=== PATIENT | female | born 1955 | race Caucasian/White ===

== ENCOUNTER → 2018-06-03 12:03 | Outpatient (CLI) | payer OTHER, SELFPAY ==
--- NOTE | 2018-06-03 | DI.MG.S_ITS ---
BILATERAL DIGITAL SCREENING MAMMOGRAM 3D/2D WITH CAD: 06/03/2018 CLINICAL: Routine screening. Family history of breast cancer. Comparison is made to exams dated: 05/04/2017 mammogram and 04/29/2016 mammogram - [facility]. The tissue of both breasts is heterogeneously dense. This may lower the sensitivity of mammography. Current study was also evaluated with a Computer Aided Detection (CAD) system. No significant masses, calcifications, or other findings are seen in either breast. There has been no significant interval change. IMPRESSION: NEGATIVE There is no mammographic evidence of malignancy. A 1 year screening mammogram is recommended. This exam was interpreted at Station ID: [id number]. NOTE: For mammograms, a report in lay terms will be sent to the patient. Approximately 15% of breast malignancies will not be visualized mammographically. In the management of a palpable breast mass, a negative mammogram must not discourage biopsy of a clinically suspicious lesion. Electronically Signed By: Harjinder lisa/brandie:06/03/2018 19:38:36 letter sent: Normal Exam ACR BI-RADS Category 1: Negative [id number]
== END ==
PROVIDERS: PCP Physician Assistant; Visit Provider Physician Assistant
DX: Z12.31 Encounter for screening mammogram for malignant neoplasm of breast (principal); Z80.3 Family history of malignant neoplasm of breast
CPT/HCPCS: 77063; 77067

== ENCOUNTER 2023-07-20 14:00 | Outpatient (RCR) | payer MEDICARE, OTHER, SELFPAY ==
--- NOTE | 2023-05-04 18:13 | PT.OIE ---
Current Diagnoses Pain in right hip (05/04/23) Other specified disorders of muscle (05/04/23) Visit Care Team Role Provider Type Corrie Garcia DO Attending Provider Non-Staff Family Provider Primary Care Provider Referring Provider Specialty: Internal Medicine Address: [address] [place] [address], [id number] Email: Physical Therapy Initial Evaluation PT-OP-A Visit Information Start: 04/17/23 20:10 Freq: Status: Active Protocol: Document 05/04/23 13:21 LRN (Rec: 05/04/23 18:05 LRN [id number]) Out-Patient Physical Therapy Visit Information Visit Information Visit Type Initial Evaluation Visit Start Time 13:21 Visit Stop Time 14:11 Total Visit Minutes 50 Visit Number 1 Evaluation Information Evaluation Date 05/04/23 Precautions Precautions History of lumbar surgery due to herniated disc, lobectomy, hyste. PT-OP-B Current Condition Start: 04/17/23 20:10 Freq: Status: Active Protocol: Document 05/04/23 13:21 LRN (Rec: 05/04/23 18:05 LRN [id number]) Current Condition History of Current Condition Onset Date Past 2 yrs urainry leakage. R Hip pain sncdecember. Current Complaints R hip pain primary concern, and urinary incontinence. History of Current Condition R hip pain is primary concern. 1995 had total hyste and has felt since then she has to frequently urinate. R hip pain history: Chronic R hip pain off/on, in early December of 2022 she wasn't having any hip pain, but after hiking she was going downhill, stepping into an indent with R leg, causing her to slide, jammed the R hip into the socket. She continued to hike and was able to hike until a month ago because the hills got challenging and uncomfortable. She has more pain going uphill than downhill. Prior hx of R hip pain was that she was usually stiff on both sides. Now she can't lie on either side, but the right side is worse than the left. Her pain is located below the greater trochanter. Urinary incontinence history: Urinates frequently for a lot of yrs but in the last couple of years after she urinates, she feels the need to urinate immediately afterwards on standing. She doesn't know if she has more to urinate afterwards or whether she just feels she has to urinate. 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 She has had urinary leakage a couple of times when she couldn't make it to the bathroom. Currently she doesn't wear protection. Prior Treatments and Tests No recent x-rays. X-rays on both hips 10 yrs ago. Treatment Goals Patient/Caregiver Goals R hip goals: be able to sleep, walk, and go walk uphill without pain. PF goals: be able to have supreme contol of bladder, by not feeling like she has to urinate right after urinating. Pt agrees to education in breath control with coughing, sneezing and lifting and strengthening ex's. Personal Factors Other Personal Factors That May Effect Previous lower lumbar surgery Therapy/Recovery for herniated disc causing L sided pain. PT-OP-C Subjective Start: 04/17/23 20:10 Freq: Status: Active Protocol: Document 05/04/23 13:21 LRN (Rec: 05/04/23 18:05 LRN [id number]) OP-PT Subjective Patient Comments Patient Comments Previously had surgery of lumbar spine for herniated disc. Patient Questionnaires Lower Extremity Functional Scale LEFS Score 55 LEFS Impairment 1 to 19% Impaired (Score 63-79 ) Pelvic Pain and Urgency/Frequency Patient Symptom Scale Pelvic Pain Score 6 OP-PT Pain Assessment Pain Assessment Grid Paper Pain Assessment Grid Completed Yes Location R hip Pain Location Details R hip below greater trochanter Intensity 4 Scale Used Numeric (0 - 10) Description Aching Frequency Constant Pain Aggravating Factors Position,Activity,Sitting, Walking Other Pain Aggravating Factors Walking and lying Pain Alleviating Factors Inactivity Other Pain Alleviating Factors IBP Comments Pain Comments Not getting exercise she used to get. PT-OP-G Mobility & Gait Start: 04/17/23 20:11 Freq: Status: Active Protocol: Document 05/04/23 13:21 LRN (Rec: 05/04/23 18:05 LRN [id number]) Stair Climbing Evaluation Evaluation Level of Assist On Stairs Independent Devices Stair Climbing Assistive Devices Right Railing Technique/Endurance Stair Climbing Direction Ascend Stair Climbing Technique Step to Step Number of Steps Climbed 20 Comments Stair Climbing Comments Pain with going up stairs. PT-OP-H Neuro Start: 04/17/23 20:11 Freq: Status: Active Protocol: Document 05/04/23 13:21 LRN (Rec: 05/04/23 18:05 LRN [id number]) Sensation Evaluation Gross Sensation Gross Sensation WNL PT-OP-J Posture/Palpation/Skin Start: 04/17/23 20:10 Freq: Status: Active Protocol: Document 05/04/23 13:21 LRN (Rec: 05/04/23 18:05 LRN [id number]) Posture Evaluation Position Standing Head/C-Spine Posture Forward Head T-Spine Posture Increased Kyphosis L-Spine Posture Shifted Left Shoulder Posture (R) Elevated Scapula Posture (R) Elevated Arm Posture (L) Internally Rotated,(R) Internally Rotated Weight Distribution Balanced Knee Posture (R) Genu Valgus Ankle/Foot Posture (L) Calcaneal Eversion Comments Posture Comments Valgus knees: 7 deg's right, 2 deg's left. Decreased gastrocnemius ms mass on R, valgus L ankle > R. Pt reports she tends to stand on R LE out of habit. RUptured disc with pain on L side. Palpation Assessment Location Trunk Palpation Location Between lower ribs and Iliac Crest Palpation Details Decreased space on R between ribs/pelvis. R hip Palpation Location Inferior to R greater trochanter, R sacral border Palpation Findings Soft Tissue Tightness, Tenderness PT-OP-K Range of Motion Start: 04/17/23 20:10 Freq: Status: Active Protocol: Document 05/04/23 13:21 LRN (Rec: 05/04/23 18:05 LRN [id number]) Lumbar Spine Range of Motion Lumbar Spine Active Degrees Testing Position Standing Flexion 72 Extension 5 Rotation Left 10 Rotation Right 2 Lateral Flexion Left 8 Lateral Flexion Right 3 Comments Trunk AROM: Flexion is 72 deg ?s with 62 deg?s hip flexion, Trunk extension is 5 deg?s with 5 deg?s hip extension. Hip Goniometric Range of Motion Hip Right Passive Testing Position Supine Straight Leg Raise 75 Internal Rotation 25 External Rotation 50 Left Passive Testing Position Supine Straight Leg Raise 75 Internal Rotation 15 External Rotation 60 PT-OP-M Strength Start: 04/17/23 20:10 Freq: Status: Active Protocol: Document 05/04/23 13:21 LRN (Rec: 05/04/23 18:05 LRN [id number]) Hip Strength Hip Manual Muscle Testing Right Flexion (L2) 3 Fair Abduction 2+ Poor+ Adduction 2- Poor- External Rotation 5 Normal Internal Rotation 3 Fair Left Flexion (L2) 3 Fair Abduction 2 Poor Adduction 2 Poor External Rotation 3+ Fair+ Internal Rotation 3 Fair PT-OP-Q Treatments Start: 04/17/23 20:10 Freq: Status: Active Protocol: Document 05/04/23 13:21 LRN (Rec: 05/04/23 18:05 [facility] [id number]) Therapeutic Exercises Sitting Exercises Hip ER stretch Sitting Exercise Name I/S & showed Piriformis stretch w/R ankle over knee, pushing knee down. Side right Comments I/S & reviewed HEP handout issued Piriformis stretch Sitting Exercise Name I/S & showed Piriformis stretch w/R ankle over knee, leaning L shdr to knee. Side right Comments I/S & reviewed HEP handout issued Self-Care/Home Management Treatment Education Patient Education Home Exercise Program Other Education Discussed results of evaluation, goals, and plan of care (POC). Pt agreeable to goals and POC. Discussed & educated pt in proper squatting and lifting, sit to stand, and moving in bed using breathwork and PF contraction for proper pistoning effect. Issued, discussed, & reviewed Bladder Diary for pt to complete over the next 7 days. Explained how to fill out diary and counting of urination times. Activities Self-Care/Home Management Activities Education: Reviewed handout for Kegel exercises for Quick Flicks, Long Holds & Aggrevators with I/S to do Kegels while she focus' on her R hip pain rehabilitation. PT-OP-T Assessment and Plan Start: 04/17/23 20:10 Freq: Status: Active Protocol: Document 05/04/23 13:21 LRN (Rec: 05/04/23 18:05 [facility] [id number]) Physical Therapy Assessment Rehab Potential Rehabilitation Potential Good Evaluation Complexity Number of Personal Factors/Comorbidities 1-2 Number of Body Systems Impaired 4 or More Clinical Presentation at Evaluation Evolving Impairments Impairments Activity Tolerance,Functional Activities,Pain,Posture,ROM, Soft Tissue Mobility,Strength, Transfers Goals Five Impairment Stress urinary incontinence Impairment Urinary leakage with cough, sneeze or bending over to car pick up driver a pot. Short Term Goal (STG) Pt will be educated in breath control with coughing, sneezing and lifting and strengthening ex's. STG Duration 06/21/23 Retirement Goal (LTG) Improve PF strength with pt able to cough, sneeze or bend over to car pick up driver an object of moderate weight wihtout urinary leakage. LTG Duration 08/02/23 Four Impairment Lacks appropriate self care HEP for urinary incontinence care. Short Term Goal (STG) Education in proper methods for transfer with coordination of breathing, PF contractions , and eduation in proper vulvar/genital care. STG Duration 06/21/23 Retirement Goal (LTG) Pt will be educated in Pt will be independent with a self care HEP of PF/core strengthening exercises. LTG Duration 08/02/23 Three Impairment Urge urinary incontinence Impairment Urinates frequently, after she urinates, she feels the need to urinate immediately afterwards on standing and sometimes when trying to make it to the bathroom. Short Term Goal (STG) Pt will be educated in urinary delay technique with ability to not leak urine when walking to the bathroom. STG Duration 06/21/23 Brazer Resistance Goal (LTG) Pt will improve PF strength and will no longer feel like she has to urinate right after urinating. LTG Duration 08/02/23 Two Impairment R hip pain with activity and sitting. Impairment Increased R hip pain, 4/10, and discomfort with prolonged sitting and with ascending walking (uphill) and stair ambulation. Short Term Goal (STG) Decrease R hip pain with prolonged sitting. STG Duration 06/04/23 Brazer Resistance Goal (LTG) Decrease R hip pain with pt able to sleep, walk, and go uphill and ascend stairs with minimal or no pain. LTG Duration 08/02/23 One Impairment Lacks appropriate self care HEP for R hip pain management Short Term Goal (STG) Pt will be educated in proper sitting and standing posture. STG Duration 06/04/23 [place]razer Resistance Goal (LTG) Pt will be independent with a self care HEP of R>L hip ROM and hip/LE strengthening exercises. LTG Duration 08/02/23 Assessment Summary Assessment Pt is a 67 yo female who presents with her primary complaint and concern being R hip pain and secondary complaint of mixed urinary incontinence. The pt would like her rehab to focus on her R hip pain to start and address her mixed urinary incontinence at a later time. Her R hip pain appears to be due to mechanical (anter rotated R innominate and L rotated sacrum) and soft tissue (R posterior hip muscle tightness) dysfunction. The pt will need further assessment of her PF due to time constraints; therefore her PF muscle strength will be tested at her next visit. It is expected that the pt will require extended rehab time of 4-5 months to address her R hip pain, followed by PF rehabilitation. The pt will benefit from skilled physical therapy to achieve the above stated goals. Physical Therapy Plan Frequency and Duration Frequency of Treatment 2x/Week Plan of Care Start Date 05/04/23 Therapeutic Interventions Therapeutic Interventions Gait Training,Home Exercise Program,Joint Mobilizations, Manual Therapy,Neuromuscular Re-education,Self-Care/Home Management,Soft Tissue Mobilization,Therapeutic Activities,Therapeutic Exercises Modalities Cold Pack/Ice Massage,Electric Stimulation,Hot Packs Next Visit Focus/Plan Next Note Type Treatment Note Next Visit Plan R hip rehabilitation for anter rotated R innominate and L rotated sacrum, and PF rehab for mixed urinary incontinence . Complete external and internal PF assessment f/b JMT to R innominate for anterior rotation and sacral L rotation . PF strengthening as appropriate. Assess: Trunk strength, PF strength Ther Ex: PF/hip strengthening (support Valgus of R knee), Stretches: R hip ER/L hip IR, R Sciatic n. glides, & Trunk R rot/R SB. POC focus: R hip pain resolution, then PF rehabilitation.
--- NOTE | 2023-05-04 18:13 | PT.OPPOC ---
Physical, Occupational & Speech Therapy At [facility] Current Diagnoses Pain in right hip (05/04/23) Other specified disorders of muscle (05/04/23) Visit Care Team Role Provider Type Corrie Garcia DO Attending Provider Non-Staff Family Provider Primary Care Provider Referring Provider Specialty: Internal Medicine Address: [address] [place] [address], [id number] Email: Plan Of Care PT-OP-T Assessment and Plan Start: 04/17/23 20:10 Freq: Status: Active Protocol: Document 05/04/23 13:21 LRN (Rec: 05/04/23 18:05 LRN [id number]) Physical Therapy Assessment Rehab Potential Rehabilitation Potential Good Evaluation Complexity Number of Personal Factors/Comorbidities 1-2 Number of Body Systems Impaired 4 or More Clinical Presentation at Evaluation Evolving Impairments Impairments Activity Tolerance,Functional Activities,Pain,Posture,ROM, Soft Tissue Mobility,Strength, Transfers Goals Five Impairment Stress urinary incontinence Impairment Urinary leakage with cough, sneeze or bending over to picking tech a pot. Short Term Goal (STG) Pt will be educated in breath control with coughing, sneezing and lifting and strengthening ex's. STG Duration 06/21/23 Security Architect Goal (LTG) Improve PF strength with pt able to cough, sneeze or bend over to picking tech an object of moderate weight wihtout urinary leakage. LTG Duration 08/02/23 Four Impairment Lacks appropriate self care HEP for urinary incontinence care. Short Term Goal (STG) Education in proper methods for transfer with coordination of breathing, PF contractions , and eduation in proper vulvar/genital care. STG Duration 06/21/23 Long-Term Goal (LTG) Pt will be educated in Pt will be independent with a self care HEP of PF/core strengthening exercises. LTG Duration 08/02/23 Three Impairment Urge urinary incontinence Impairment Urinates frequently, after she urinates, she feels the need to urinate immediately afterwards on standing and sometimes when trying to make it to the bathroom. Short Term Goal (STG) Pt will be educated in urinary delay technique with ability to not leak urine when walking to the bathroom. STG Duration 06/21/23 Long-Term Goal (LTG) Pt will improve PF strength and will no longer feel like she has to urinate right after urinating. LTG Duration 08/02/23 Two Impairment R hip pain with activity and sitting. Impairment Increased R hip pain, 4/10, and discomfort with prolonged sitting and with ascending walking (uphill) and stair ambulation. Short Term Goal (STG) Decrease R hip pain with prolonged sitting. STG Duration 06/04/23 Long-Term Goal (LTG) Decrease R hip pain with pt able to sleep, walk, and go uphill and ascend stairs with minimal or no pain. LTG Duration 08/02/23 One Impairment Lacks appropriate self care HEP for R hip pain management Short Term Goal (STG) Pt will be educated in proper sitting and standing posture. STG Duration 06/04/23 Security Architect Goal (LTG) Pt will be independent with a self care HEP of R>L hip ROM and hip/LE strengthening exercises. LTG Duration 08/02/23 Assessment Summary Assessment Pt is a 67 yo female who presents with her primary complaint and concern being R hip pain and secondary complaint of mixed urinary incontinence. The pt would like her rehab to focus on her R hip pain to start and address her mixed urinary incontinence at a later time. Her R hip pain appears to be due to mechanical (anter rotated R innominate and L rotated sacrum) and soft tissue (R posterior hip muscle tightness) dysfunction. The pt will need further assessment of her PF due to time constraints; therefore her PF muscle strength will be tested at her next visit. It is expected that the pt will require extended rehab time of 4-5 months to address her R hip pain, followed by PF rehabilitation. The pt will benefit from skilled physical therapy to achieve the above stated goals. Physical Therapy Plan Frequency and Duration Frequency of Treatment 2x/Week Plan of Care Start Date 05/04/23 Therapeutic Interventions Therapeutic Interventions Gait Training,Home Exercise Program,Joint Mobilizations, Manual Therapy,Neuromuscular Re-education,Self-Care/Home Management,Soft Tissue Mobilization,Therapeutic Activities,Therapeutic Exercises Modalities Cold Pack/Ice Massage,Electric Stimulation,Hot Packs Next Visit Focus/Plan Next Note Type Treatment Note Next Visit Plan R hip rehabilitation for anter rotated R innominate and L rotated sacrum, and PF rehab for mixed urinary incontinence . Complete external and internal PF assessment f/b JMT to R innominate for anterior rotation and sacral L rotation . PF strengthening as appropriate. Assess: Trunk strength, PF strength Ther Ex: PF/hip strengthening (support Valgus of R knee), Stretches: R hip ER/L hip IR, R Andrzej crowe, & Trunk R rot/R SB. POC focus: R hip pain resolution, then PF rehabilitation. Plan of Care Dates Plan of Care Start Date 05/04/23 Electronically Signed by: Porsche Gabriel, PT 05/05/23 5698 If you are in agreement with this Plan of Care, please return a signed and dated copy. I have reviewed this Plan of Care and certify that the skilled therapy services above are required to meet the patient?s needs. Physician Signature Date Printed Name and Credentials Clinical Instructor Signature Printed Name and Credentials
--- NOTE | 2023-05-11 17:35 | PT.OTN ---
Current Diagnoses Pain in right hip (05/11/23) Other specified disorders of muscle (05/11/23) Segmental and somatic dysfunction of sacral region (05/11/23) Physical Therapy Treatment Note PT-OP-A Visit Information Start: 04/17/23 20:10 Freq: Status: Active Protocol: Document 05/11/23 08:53 LRN (Rec: 05/11/23 09:36 LRN [id number]) Out-Patient Physical Therapy Visit Information Visit Information Visit Type Treatment Note Visit Start Time 08:53 Visit Stop Time 08:33 Total Visit Minutes 40 Visit Number 2 Evaluation Information Evaluation Date 05/04/23 Precautions Precautions History of lumbar surgery due to herniated disc, lobectomy, hyste. PT-OP-B Current Condition Start: 04/17/23 20:10 Freq: Status: Active Protocol: Document 05/04/23 13:21 LRN (Rec: 05/04/23 18:05 LRN [id number]) Current Condition History of Current Condition Onset Date Past 2 yrs urainry leakage. R Hip pain december. Current Complaints R hip pain primary concern, and urinary incontinence. History of Current Condition R hip pain is primary concern. 1995 had total hyste and has felt since then she has to frequently urinate. R hip pain history: Chronic R hip pain off/on, in early December of 2022 she wasn't having any hip pain, but after hiking she was going downhill, stepping into an indent with R leg, causing her to slide, jammed the R hip into the socket. She continued to hike and was able to hike until a month ago because the hills got challenging and uncomfortable. She has more pain going uphill than downhill. Prior hx of R hip pain was that she was usually stiff on both sides. Now she can't lie on either side, but the right side is worse than the left. Her pain is located below the greater trochanter. Urinary incontinence history: Urinates frequently for a lot of yrs but in the last couple of years after she urinates, she feels the need to urinate immediately afterwards on standing. She doesn't know if she has more to urinate afterwards or whether she just feels she has to urinate. She reports urinary leakage with cough, sneeze or bending over to pecan picker a pot. She has had urinary leakage a couple of times when she couldn't make it to the bathroom. Currently she doesn't wear protection. Prior Treatments and Tests No recent x-rays. X-rays on both hips 10 yrs ago. Treatment Goals Patient/Caregiver Goals R hip goals: be able to sleep, walk, and go walk uphill without pain. PF goals: be able to have supreme contol of bladder, by not feeling like she has to urinate right after urinating. Pt agrees to education in breath control with coughing, sneezing and lifting and strengthening ex's. Personal Factors Other Personal Factors That May Effect Previous lower lumbar surgery Therapy/Recovery for herniated disc causing L sided pain. PT-OP-C Subjective Start: 04/17/23 20:10 Freq: Status: Active Protocol: Document 05/11/23 08:53 LRN (Rec: 05/11/23 09:36 LRN [id number]) OP-PT Subjective Patient Comments Patient Comments States this morning her R hip feels a little better. For the past 2 weekends has had parties to prepare. Wasn't clear with ex's. PT-OP-G Mobility & Gait Start: 04/17/23 20:11 Freq: Status: Active Protocol: Document 05/04/23 13:21 LRN (Rec: 05/04/23 18:05 LRN [id number]) Stair Climbing Evaluation Evaluation Level of Assist On Stairs Independent Devices Stair Climbing Assistive Devices Right Railing Technique/Endurance Stair Climbing Direction Ascend Stair Climbing Technique Step to Step Number of Steps Climbed 20 Comments Stair Climbing Comments Pain with going up stairs. PT-OP-H Neuro Start: 04/17/23 20:11 Freq: Status: Active Protocol: Document 05/04/23 13:21 LRN (Rec: 05/04/23 18:05 LRN [id number]) Sensation Evaluation Gross Sensation Gross Sensation WNL PT-OP-J Posture/Palpation/Skin Start: 04/17/23 20:10 Freq: Status: Active Protocol: Document 05/04/23 13:21 LRN (Rec: 05/04/23 18:05 LRN [id number]) Posture Evaluation Position Standing Head/C-Spine Posture Forward Head T-Spine Posture Increased Kyphosis L-Spine Posture Shifted Left Shoulder Posture (R) Elevated Scapula Posture (R) Elevated Arm Posture (L) Internally Rotated,(R) Internally Rotated Weight Distribution Balanced Knee Posture (R) Genu Valgus Ankle/Foot Posture (L) Calcaneal Eversion Comments Posture Comments Valgus knees: 7 deg's right, 2 deg's left. Decreased gastrocnemius ms mass on R, valgus L ankle > R. Pt reports she tends to stand on R LE out of habit. RUptured disc with pain on L side. Palpation Assessment Location Trunk Palpation Location Between lower ribs and Iliac Crest Palpation Details Decreased space on R between ribs/pelvis. R hip Palpation Location Inferior to R greater trochanter, R sacral border Palpation Findings Soft Tissue Tightness, Tenderness PT-OP-K Range of Motion Start: 04/17/23 20:10 Freq: Status: Active Protocol: Document 05/11/23 08:53 LRN (Rec: 05/11/23 09:36 LRN [id number]) Hip Goniometric Range of Motion Hip Right Passive Testing Position Supine Straight Leg Raise 75 Internal Rotation 25 External Rotation 50 Left Passive Testing Position Supine Straight Leg Raise 75 Internal Rotation 30 External Rotation 60 PT-OP-M Strength Start: 04/17/23 20:10 Freq: Status: Active Protocol: Document 05/04/23 13:21 LRN (Rec: 05/04/23 18:05 LRN [id number]) Hip Strength Hip Manual Muscle Testing Right Flexion (L2) 3 Fair Abduction 2+ Poor+ Adduction 2- Poor- External Rotation 5 Normal Internal Rotation 3 Fair Left Flexion (L2) 3 Fair Abduction 2 Poor Adduction 2 Poor External Rotation 3+ Fair+ Internal Rotation 3 Fair PT-OP-Q Treatments Start: 04/17/23 20:10 Freq: Status: Active Protocol: Document 05/11/23 08:53 LRN (Rec: 05/11/23 09:36 LRN [id number]) Therapeutic Exercises Supine Exercises Fig 4 stretch Supine Exercise Name Fig 4 stretch Side right Reps/Minutes 60 SH x 2 Comments Extra time for positioning and determining max tolerated stretch. Lateral Hip stretch Supine Exercise Name Lateral Hip stretch Side right Reps/Minutes 60 SH x 1 Comments Extra time for positioning and determining max tolerated stretch. Piriformis stretch Supine Exercise Name Piriformis stretch Side right Reps/Minutes 60 SH x 2 Comments Extra time for positioning and determining max tolerated stretch. Sitting Exercises Hip ER stretch Sitting Exercise Name I/S & showed Piriformis stretch w/R ankle over knee, pushing knee down. Side right Reps/Minutes 60 SH x 1 Comments Extra time for positioning training for stretch Piriformis stretch Sitting Exercise Name I/S & showed Piriformis stretch w/R ankle over knee, leaning L shdr to knee. Side right Reps/Minutes 60 SH x 1 Comments Extra time for positioning training for stretch Manual Therapy Treatment Manual Techniques Sacral Balancing Type 6 pt Sacral balancing Body Location Sacrum Body Position Prone Reps/Duration 13 Comments R restricted with Infer glide, PA of RACHEL and Sacral sulcus. Self-Care/Home Management Treatment Education Patient Education Home Exercise Program Activities Self-Care/Home Management Activities Issued & reviewed HEP: R Piriformis (sup & sit) & L lateral hip stretch. PT-OP-T Assessment and Plan Start: 04/17/23 20:10 Freq: Status: Active Protocol: Document 05/11/23 08:53 LRN (Rec: 05/11/23 09:36 LRN [id number]) Physical Therapy Assessment Goals Five Impairment Stress urinary incontinence Impairment Urinary leakage with cough, sneeze or bending over to pecan picker a pot. Short Term Goal (STG) Pt will be educated in breath control with coughing, sneezing and lifting and strengthening ex's. STG Duration 06/21/23 Shelter Goal (LTG) Improve PF strength with pt able to cough, sneeze or bend over to pecan picker an object of moderate weight wihtout urinary leakage. LTG Duration 08/02/23 Four Impairment Lacks appropriate self care HEP for urinary incontinence care. Short Term Goal (STG) Education in proper methods for transfer with coordination of breathing, PF contractions , and eduation in proper vulvar/genital care. STG Duration 06/21/23 User Interface Artist Goal (LTG) Pt will be educated in Pt will be independent with a self care HEP of PF/core strengthening exercises. LTG Duration 08/02/23 Three Impairment Urge urinary incontinence Impairment Urinates frequently, after she urinates, she feels the need to urinate immediately afterwards on standing and sometimes when trying to make it to the bathroom. Short Term Goal (STG) Pt will be educated in urinary delay technique with ability to not leak urine when walking to the bathroom. STG Duration 06/21/23 User Interface Artist Goal (LTG) Pt will improve PF strength and will no longer feel like she has to urinate right after urinating. LTG Duration 08/02/23 Two Impairment R hip pain with activity and sitting. Impairment Increased R hip pain, 4/10, and discomfort with prolonged sitting and with ascending walking (uphill) and stair ambulation. Short Term Goal (STG) Decrease R hip pain with prolonged sitting. STG Duration 06/04/23 User Interface Artist Goal (LTG) Decrease R hip pain with pt able to sleep, walk, and go uphill and ascend stairs with minimal or no pain. LTG Duration 08/02/23 One Impairment Lacks appropriate self care HEP for R hip pain management Short Term Goal (STG) Pt will be educated in proper sitting and standing posture. STG Duration 06/04/23 Shelter Goal (LTG) Pt will be independent with a self care HEP of R>L hip ROM and hip/LE strengthening exercises. 05/11/23: HEP: Hip ER/IR stretch. LTG Duration 08/02/23 progressed 05/11/23 Assessment Summary Assessment Pt R hip ER/IR mobility decreased and leg length appears equal in supine today. Pt has fair tolerance to R hip ER stretch, good tolerance to R hip IR stretch. Fairly easy mob of sacrum. Pt sacrum is in L rotation w/ tight R hip muscles. Physical Therapy Plan Frequency and Duration Frequency of Treatment 2x/Week Duration of treatment (weeks) 12 Plan of Care Start Date 05/04/23 Plan of Care End Date 08/02/23 Therapeutic Interventions Therapeutic Interventions Gait Training,Home Exercise Program,Joint Mobilizations, Manual Therapy,Neuromuscular Re-education,Self-Care/Home Management,Soft Tissue Mobilization,Therapeutic Activities,Therapeutic Exercises Modalities Cold Pack/Ice Massage,Electric Stimulation,Hot Packs Next Visit Focus/Plan Next Note Type Treatment Note Next Visit Plan R hip rehabilitation for pain. PF rehab for mixed urinary incontinence. Complete external and internal PF assessment f/b JMT as needed to R innominate for anterior rotation and sacral L rotation. Check for response to sacral balancing. Recheck hip mobility. PF strengthening as appropriate. Assess: Trunk strength, PF strength Ther Ex: PF/hip strengthening (support Valgus of R knee), Stretches: R hip ER/L hip IR, R Sciatic n. glides, & Trunk R rot/R SB. POC focus: R hip pain resolution, then PF rehabilitation.
--- NOTE | 2023-05-19 16:28 | PT.OTN ---
Current Diagnoses Pain in right hip (05/19/23) Other specified disorders of muscle (05/19/23) Segmental and somatic dysfunction of sacral region (05/19/23) Physical Therapy Treatment Note PT-OP-A Visit Information Start: 04/17/23 20:10 Freq: Status: Active Protocol: Document 05/19/23 15:03 LRN (Rec: 05/19/23 16:28 LRN [id number]) Out-Patient Physical Therapy Visit Information Visit Information Visit Type Treatment Note Visit Start Time 15:03 Visit Stop Time 15:46 Total Visit Minutes 45 Visit Number 3 Evaluation Information Evaluation Date 05/04/23 Precautions Precautions History of lumbar surgery due to herniated disc, lobectomy, hyste. PT-OP-B Current Condition Start: 04/17/23 20:10 Freq: Status: Active Protocol: Document 05/04/23 13:21 LRN (Rec: 05/04/23 18:05 LRN [id number]) Current Condition History of Current Condition Onset Date Past 2 yrs urainry leakage. R Hip pain december. Current Complaints R hip pain primary concern, and urinary incontinence. History of Current Condition R hip pain is primary concern. 1995 had total hyste and has felt since then she has to frequently urinate. R hip pain history: Chronic R hip pain off/on, in early December of 2022 she wasn't having any hip pain, but after hiking she was going downhill, stepping into an indent with R leg, causing her to slide, jammed the R hip into the socket. She continued to hike and was able to hike until a month ago because the hills got challenging and uncomfortable. She has more pain going uphill than downhill. Prior hx of R hip pain was that she was usually stiff on both sides. Now she can't lie on either side, but the right side is worse than the left. Her pain is located below the greater trochanter. Urinary incontinence history: Urinates frequently for a lot of yrs but in the last couple of years after she urinates, she feels the need to urinate immediately afterwards on standing. She doesn't know if she has more to urinate afterwards or whether she just feels she has to urinate. She reports urinary leakage with cough, sneeze or bending over to black pickler a pot. She has had urinary leakage a couple of times when she couldn't make it to the bathroom. Currently she doesn't wear protection. Prior Treatments and Tests No recent x-rays. X-rays on both hips 10 yrs ago. Treatment Goals Patient/Caregiver Goals R hip goals: be able to sleep, walk, and go walk uphill without pain. PF goals: be able to have supreme contol of bladder, by not feeling like she has to urinate right after urinating. Pt agrees to education in breath control with coughing, sneezing and lifting and strengthening ex's. Personal Factors Other Personal Factors That May Effect Previous lower lumbar surgery Therapy/Recovery for herniated disc causing L sided pain. PT-OP-C Subjective Start: 04/17/23 20:10 Freq: Status: Active Protocol: Document 05/19/23 15:03 LRN (Rec: 05/19/23 16:28 LRN [id number]) OP-PT Subjective Patient Comments Patient Comments Overall hip isn't better. Was able to lay on the R side a little today. [place] good after last session but now has pain in the R lateral lower leg, then 2 days after last session the R knee seized up and couldn't bend it comfortably and was a little stiff and weak. Ocasionally (once every few days) feels like it will give out. Spent 2 days driving to [facility]. Took longer walks than normal last week. PT-OP-G Mobility & Gait Start: 04/17/23 20:11 Freq: Status: Active Protocol: Document 05/04/23 13:21 LRN (Rec: 05/04/23 18:05 LRN [id number]) Stair Climbing Evaluation Evaluation Level of Assist On Stairs Independent Devices Stair Climbing Assistive Devices Right Railing Technique/Endurance Stair Climbing Direction Ascend Stair Climbing Technique Step to Step Number of Steps Climbed 20 Comments Stair Climbing Comments Pain with going up stairs. PT-OP-H Neuro Start: 04/17/23 20:11 Freq: Status: Active Protocol: Document 05/04/23 13:21 LRN (Rec: 05/04/23 18:05 LRN [id number]) Sensation Evaluation Gross Sensation Gross Sensation WNL PT-OP-I Pelvic Floor Start: 04/17/23 20:10 Freq: Status: Active Protocol: Document 05/19/23 15:03 LRN (Rec: 05/19/23 16:28 LRN [id number]) Pelvic Floor Assessment Urine Urinary Symptoms Dribbling After Urination, Incomplete Emptying Leakage Cause Cough,Sneeze Nocturia 0 Pads Used In 24 Hours 0 Bowel Bowel Symptoms Constipation,Uncontrolled Flatulence Bowel Movement Frequency 3-6 [place] Stool Chart Comments Stool types range 4-6 Pelvic Clock Pelvic Clock Other Redness and dry in PF Pt performs PF contraction with substitue ms, primarily gluteal and abdominal muscles. . Prolapse Cystocele Grade 2 Urethrocele Grade 2 Prolapse Comments Can feel end of vagina (pt w/o uterus) with full index finger insertion (7cm). Perineal Descent Resting Absent Bearing Present Contraction Ability Voluntary Relaxation Moderate Manual Muscle Testing Left 2 Manual Muscle Testing Right 2 Manual Muscle Testing Anterior 0 Manual Muscle Testing Posterior 3 Muscle Endurance (Seconds) 3 Number of Quick Contractions In 10 10 Seconds Comments Pelvic Floor Comments Weak Superficial ms contraction, not easily identifiable. PT-OP-J Posture/Palpation/Skin Start: 04/17/23 20:10 Freq: Status: Active Protocol: Document 05/04/23 13:21 LRN (Rec: 05/04/23 18:05 LRN [id number]) Posture Evaluation Position Standing Head/C-Spine Posture Forward Head T-Spine Posture Increased Kyphosis L-Spine Posture Shifted Left Shoulder Posture (R) Elevated Scapula Posture (R) Elevated Arm Posture (L) Internally Rotated,(R) Internally Rotated Weight Distribution Balanced Knee Posture (R) Genu Valgus Ankle/Foot Posture (L) Calcaneal Eversion Comments Posture Comments Valgus knees: 7 deg's right, 2 deg's left. Decreased gastrocnemius ms mass on R, valgus L ankle > R. Pt reports she tends to stand on R LE out of habit. RUptured disc with pain on L side. Palpation Assessment Location Trunk Palpation Location Between lower ribs and Iliac Crest Palpation Details Decreased space on R between ribs/pelvis. R hip Palpation Location Inferior to R greater trochanter, R sacral border Palpation Findings Soft Tissue Tightness, Tenderness PT-OP-K Range of Motion Start: 04/17/23 20:10 Freq: Status: Active Protocol: Document 05/11/23 08:53 LRN (Rec: 05/11/23 09:36 LRN [id number]) Hip Goniometric Range of Motion Hip Right Passive Testing Position Supine Straight Leg Raise 75 Internal Rotation 25 External Rotation 50 Left Passive Testing Position Supine Straight Leg Raise 75 Internal Rotation 30 External Rotation 60 PT-OP-M Strength Start: 04/17/23 20:10 Freq: Status: Active Protocol: Document 05/04/23 13:21 LRN (Rec: 05/04/23 18:05 LRN [id number]) Hip Strength Hip Manual Muscle Testing Right Flexion (L2) 3 Fair Abduction 2+ Poor+ Adduction 2- Poor- External Rotation 5 Normal Internal Rotation 3 Fair Left Flexion (L2) 3 Fair Abduction 2 Poor Adduction 2 Poor External Rotation 3+ Fair+ Internal Rotation 3 Fair PT-OP-Q Treatments Start: 04/17/23 20:10 Freq: Status: Active Protocol: Document 05/19/23 15:03 LRN (Rec: 05/19/23 16:28 LRN [id number]) Therapeutic Exercises Supine Exercises PF Long Hold Contractions Supine Exercise Name PF Long Hold Contractions Reps/Minutes 10 SH x 2 Comments Pt fatigued at 3 secs and 8 secs PF Quick Contractions Supine Exercise Name Quick Contraction Reps/Minutes 10 x 2 with rest period between sets Comments 10x in 10 secs x 2 Fig 4 stretch Supine Exercise Name Fig 4 stretch Side right Reps/Minutes 60 SH x 1 Comments Cuing to not stretch into pain Piriformis stretch Supine Exercise Name Piriformis stretch Side right Reps/Minutes 60 SH x 2 Comments Extra time for positioning and determining max tolerated stretch Other Exercises Transfer training coordinating breath/PF >< Other Exercise Name Sup<>Sit<>Stand coordinating breath/PF contraction Reps/Minutes 5' Comments Education and v cuing for coordinated transfer. Manual Therapy Treatment Joint Mobilizations L innominate Joint L SIJ Direction PA of L innominate Grade I Body Position Supine Reps/Duration 3' Comments Extra time taken to assess pelvic positioning. R innoimnate inflare and ASIS deep in supine. Nerve Glides Peroneal Nerve R Peroneal glide Details R hip IR, AD, pt moving ankle into IV. Body Position Supine Reps/Duration 10 ankle IV pumps Comments Extra time taken to find max tolerated position for stretch Self-Care/Home Management Treatment Education Patient Education Home Exercise Program Other Education Discussed pt's ongoing symptoms of pain down the RLE and recommended pt use heat to sacral region if pain in hip/ leg. Reviewed PF assessment and educated pt in use of breathwork with movement ( transfers) and with activities and adding PF contractions during transfer for 10 sec contraction. Educated pt in abdominal pressure management in abdomen with transfers and activities . Activities Self-Care/Home Management Activities Issued & reviewed and discussed at length HEP: Kegels Quick Flicks and Long holds. PT-OP-T Assessment and Plan Start: 04/17/23 20:10 Freq: Status: Active Protocol: Document 05/19/23 15:03 LRN (Rec: 05/19/23 16:28 LRN [id number]) Physical Therapy Assessment Goals Five Impairment Stress urinary incontinence Impairment Urinary leakage with cough, sneeze or bending over to black pickler a pot. Short Term Goal (STG) Pt will be educated in breath control with coughing, sneezing and lifting and strengthening ex's. STG Duration 06/21/23 Environmental Conservation Officer Goal (LTG) Improve PF strength with pt able to cough, sneeze or bend over to black pickler an object of moderate weight wihtout urinary leakage. LTG Duration 08/02/23 Four Impairment Lacks appropriate self care HEP for urinary incontinence care. Short Term Goal (STG) Education in proper methods for transfer with coordination of breathing, PF contractions , and education in proper vulvar/genital care. 05/19/23: Pt educated in proper methods for transfers with coordination of breathing, PF contractions. STG Duration 06/21/23 progressing 05/19/23 (need ed in vulvar/genital care) Nursing Home Goal (LTG) Pt will be educated in Pt will be independent with a self care HEP of PF/core strengthening exercises. 05/19/23: HEP: Kegels Quick and Long Hold contractions. LTG Duration 08/02/23 progressing 05/19/23 Three Impairment Urge urinary incontinence Impairment Urinates frequently, after she urinates, she feels the need to urinate immediately afterwards on standing and sometimes when trying to make it to the bathroom. Short Term Goal (STG) Pt will be educated in urinary delay technique with ability to not leak urine when walking to the bathroom. STG Duration 06/21/23 Nursing Home Goal (LTG) Pt will improve PF strength and will no longer feel like she has to urinate right after urinating. LTG Duration 08/02/23 Two Impairment R hip pain with activity and sitting. Impairment Increased R hip pain, 4/10, and discomfort with prolonged sitting and with ascending walking (uphill) and stair ambulation. Short Term Goal (STG) Decrease R hip pain with prolonged sitting. STG Duration 06/04/23 Environmental Conservation Officer Goal (LTG) Decrease R hip pain with pt able to sleep, walk, and go uphill and ascend stairs with minimal or no pain. LTG Duration 08/02/23 One Impairment Lacks appropriate self care HEP for R hip pain management Short Term Goal (STG) Pt will be educated in proper sitting and standing posture. STG Duration 06/04/23 Environmental Conservation Officer Goal (LTG) Pt will be independent with a self care HEP of R>L hip ROM and hip/LE strengthening exercises. 05/11/23: HEP: Hip ER/IR stretch. LTG Duration 08/02/23 progressed 05/11/23 Progress Towards Goals Progress Comments Progressed education learning STG #4 and HEP. Assessment Summary Assessment Pt rehab for R hip pain and secondary complaint of mixed urinary incontinence. Pt had some relief from hip pain initiall, but return of pain and onset of LLE pain. PF assessment today shows weakness of PF superficial muscles and weakness with deep long hold contractions. PF is red and dry at vaginal entrance and labia. She has no soft tissue tenderness externally or internally. Pt will work on PF strengthening and will work on isolating PF contractions from substitue muscles on a HEP, and will monitor but focus therapy on her R hip pain per pt request. Physical Therapy Plan Frequency and Duration Frequency of Treatment 2x/Week Duration of treatment (weeks) 12 Plan of Care Start Date 05/04/23 Plan of Care End Date 08/02/23 Next Visit Focus/Plan Next Note Type Treatment Note Next Visit Plan R hip rehabilitation for pain; once resolved change focus to PF rehab for mixed urinary incontinence. JMT as needed to R innominate for inflare/shift posteriorly and check sacral L rotation for correction. Recheck hip mobility. PF strengthening as appropriate. Assess: Trunk strength Ther Ex: PF/hip strengthening (support Valgus of R knee), Stretches: R hip ER/L hip IR, R Sciatic & peroneal n. glides, & Trunk R rot/R SB. POC focus: R hip pain resolution, then PF rehabilitation.
--- NOTE | 2023-05-21 13:32 | PT.OTN ---
Current Diagnoses Pain in right hip (05/21/23) Other specified disorders of muscle (05/21/23) Segmental and somatic dysfunction of sacral region (05/21/23) Physical Therapy Treatment Note PT-OP-A Visit Information Start: 04/17/23 20:10 Freq: Status: Active Protocol: Document 05/21/23 12:34 LRN (Rec: 05/21/23 13:32 LRN [id number]) Out-Patient Physical Therapy Visit Information Visit Information Visit Type Treatment Note Visit Start Time 12:34 Visit Stop Time 13:15 Total Visit Minutes 41 Visit Number 4 Evaluation Information Evaluation Date 05/04/23 Precautions Precautions History of lumbar surgery due to herniated disc, lobectomy, hyste. PT-OP-B Current Condition Start: 04/17/23 20:10 Freq: Status: Active Protocol: Document 05/04/23 13:21 LRN (Rec: 05/04/23 18:05 LRN [id number]) Current Condition History of Current Condition Onset Date Past 2 yrs urainry leakage. R Hip pain december. Current Complaints R hip pain primary concern, and urinary incontinence. History of Current Condition R hip pain is primary concern. 1995 had total hyste and has felt since then she has to frequently urinate. R hip pain history: Chronic R hip pain off/on, in early December of 2022 she wasn't having any hip pain, but after hiking she was going downhill, stepping into an indent with R leg, causing her to slide, jammed the R hip into the socket. She continued to hike and was able to hike until a month ago because the hills got challenging and uncomfortable. She has more pain going uphill than downhill. Prior hx of R hip pain was that she was usually stiff on both sides. Now she can't lie on either side, but the right side is worse than the left. Her pain is located below the greater trochanter. Urinary incontinence history: Urinates frequently for a lot of yrs but in the last couple of years after she urinates, she feels the need to urinate immediately afterwards on standing. She doesn't know if she has more to urinate afterwards or whether she just feels she has to urinate. She reports urinary leakage with cough, sneeze or bending over to flower buncher or picker a pot. She has had urinary leakage a couple of times when she couldn't make it to the bathroom. Currently she doesn't wear protection. Prior Treatments and Tests No recent x-rays. X-rays on both hips 10 yrs ago. Treatment Goals Patient/Caregiver Goals R hip goals: be able to sleep, walk, and go walk uphill without pain. PF goals: be able to have supreme contol of bladder, by not feeling like she has to urinate right after urinating. Pt agrees to education in breath control with coughing, sneezing and lifting and strengthening ex's. Personal Factors Other Personal Factors That May Effect Previous lower lumbar surgery Therapy/Recovery for herniated disc causing L sided pain. PT-OP-C Subjective Start: 04/17/23 20:10 Freq: Status: Active Protocol: Document 05/21/23 12:34 LRN (Rec: 05/21/23 13:32 LRN [id number]) OP-PT Subjective Patient Comments Patient Comments R hip is the same, can't get comfortable. Tried heat at R lower leg last night with no significant difference. R lower leg currently hurts. PT-OP-G Mobility & Gait Start: 04/17/23 20:11 Freq: Status: Active Protocol: Document 05/04/23 13:21 LRN (Rec: 05/04/23 18:05 LRN [id number]) Stair Climbing Evaluation Evaluation Level of Assist On Stairs Independent Devices Stair Climbing Assistive Devices Right Railing Technique/Endurance Stair Climbing Direction Ascend Stair Climbing Technique Step to Step Number of Steps Climbed 20 Comments Stair Climbing Comments Pain with going up stairs. PT-OP-H Neuro Start: 04/17/23 20:11 Freq: Status: Active Protocol: Document 05/04/23 13:21 LRN (Rec: 05/04/23 18:05 LRN [id number]) Sensation Evaluation Gross Sensation Gross Sensation WNL PT-OP-I Pelvic Floor Start: 04/17/23 20:10 Freq: Status: Active Protocol: Document 05/19/23 15:03 LRN (Rec: 05/19/23 16:28 LRN [id number]) Pelvic Floor Assessment Urine Urinary Symptoms Dribbling After Urination, Incomplete Emptying Leakage Cause Cough,Sneeze Nocturia 0 Pads Used In 24 Hours 0 Bowel Bowel Symptoms Constipation,Uncontrolled Flatulence Bowel Movement Frequency 3-6 [place] Stool Chart Comments Stool types range 4-6 Pelvic Clock Pelvic Clock Other Redness and dry in PF Pt performs PF contraction with substitue ms, primarily gluteal and abdominal muscles. . Prolapse Cystocele Grade 2 Urethrocele Grade 2 Prolapse Comments Can feel end of vagina (pt w/o uterus) with full index finger insertion (7cm). Perineal Descent Resting Absent Bearing Present Contraction Ability Voluntary Relaxation Moderate Manual Muscle Testing Left 2 Manual Muscle Testing Right 2 Manual Muscle Testing Anterior 0 Manual Muscle Testing Posterior 3 Muscle Endurance (Seconds) 3 Number of Quick Contractions In 10 10 Seconds Comments Pelvic Floor Comments Weak Superficial ms contraction, not easily identifiable. PT-OP-J Posture/Palpation/Skin Start: 04/17/23 20:10 Freq: Status: Active Protocol: Document 05/04/23 13:21 LRN (Rec: 05/04/23 18:05 LRN [id number]) Posture Evaluation Position Standing Head/C-Spine Posture Forward Head T-Spine Posture Increased Kyphosis L-Spine Posture Shifted Left Shoulder Posture (R) Elevated Scapula Posture (R) Elevated Arm Posture (L) Internally Rotated,(R) Internally Rotated Weight Distribution Balanced Knee Posture (R) Genu Valgus Ankle/Foot Posture (L) Calcaneal Eversion Comments Posture Comments Valgus knees: 7 deg's right, 2 deg's left. Decreased gastrocnemius ms mass on R, valgus L ankle > R. Pt reports she tends to stand on R LE out of habit. RUptured disc with pain on L side. Palpation Assessment Location Trunk Palpation Location Between lower ribs and Iliac Crest Palpation Details Decreased space on R between ribs/pelvis. R hip Palpation Location Inferior to R greater trochanter, R sacral border Palpation Findings Soft Tissue Tightness, Tenderness PT-OP-K Range of Motion Start: 04/17/23 20:10 Freq: Status: Active Protocol: Document 05/21/23 12:34 LRN (Rec: 05/21/23 13:32 LRN [id number]) Hip Goniometric Range of Motion Hip Right Passive Testing Position Supine Internal Rotation 25 External Rotation 50 Left Passive Testing Position Supine Internal Rotation 20 External Rotation 50 PT-OP-M Strength Start: 04/17/23 20:10 Freq: Status: Active Protocol: Document 05/04/23 13:21 LRN (Rec: 05/04/23 18:05 LRN [id number]) Hip Strength Hip Manual Muscle Testing Right Flexion (L2) 3 Fair Abduction 2+ Poor+ Adduction 2- Poor- External Rotation 5 Normal Internal Rotation 3 Fair Left Flexion (L2) 3 Fair Abduction 2 Poor Adduction 2 Poor External Rotation 3+ Fair+ Internal Rotation 3 Fair PT-OP-Q Treatments Start: 04/17/23 20:10 Freq: Status: Active Protocol: Document 05/21/23 12:34 LRN (Rec: 05/21/23 13:32 LRN [id number]) Therapeutic Exercises Supine Exercises Fig 4 stretch Supine Exercise Name Fig 4 stretch Side right Reps/Minutes 60 SH x 1 Comments Cuing to not stretch into pain Lateral Hip stretch Supine Exercise Name Lateral Hip stretch Side right Reps/Minutes 60 SH x 1 Comments Extra time for positioning and determining max tolerated stretch. Piriformis stretch Supine Exercise Name Piriformis stretch Side right Reps/Minutes 60 SH x 2 Comments Extra time for positioning and determining max tolerated stretch Manual Therapy Treatment Manual Techniques Sacral Balancing Type 6 pt Sacral balancing Body Location Sacrum Body Position Prone Reps/Duration 21' Comments Restricted with R sacral sheer , R Infer glide, R PA of: sacral sulcus, RACHEL & ischial tub. PT-OP-T Assessment and Plan Start: 04/17/23 20:10 Freq: Status: Active Protocol: Document 05/21/23 12:34 LRN (Rec: 05/21/23 13:32 [facility] [id number]) Physical Therapy Assessment Goals Five Impairment Stress urinary incontinence Impairment Urinary leakage with cough, sneeze or bending over to flower buncher or picker a pot. Short Term Goal (STG) Pt will be educated in breath control with coughing, sneezing and lifting and strengthening ex's. STG Duration 06/21/23 Mcc Goal (LTG) Improve PF strength with pt able to cough, sneeze or bend over to flower buncher or picker an object of moderate weight wihtout urinary leakage. LTG Duration 08/02/23 Four Impairment Lacks appropriate self care HEP for urinary incontinence care. Short Term Goal (STG) Education in proper methods for transfer with coordination of breathing, PF contractions , and education in proper vulvar/genital care. 05/19/23: Pt educated in proper methods for transfers with coordination of breathing, PF contractions. STG Duration 06/21/23 progressing 05/19/23 (need ed in vulvar/genital care) Collection Technician Goal (LTG) Pt will be educated in Pt will be independent with a self care HEP of PF/core strengthening exercises. 05/19/23: HEP: Kegels Quick and Long Hold contractions. LTG Duration 08/02/23 progressing 05/19/23 Three Impairment Urge urinary incontinence Impairment Urinates frequently, after she urinates, she feels the need to urinate immediately afterwards on standing and sometimes when trying to make it to the bathroom. Short Term Goal (STG) Pt will be educated in urinary delay technique with ability to not leak urine when walking to the bathroom. STG Duration 06/21/23 Collection Technician Goal (LTG) Pt will improve PF strength and will no longer feel like she has to urinate right after urinating. LTG Duration 08/02/23 Two Impairment R hip pain with activity and sitting. Impairment Increased R hip pain, 4/10, and discomfort with prolonged sitting and with ascending walking (uphill) and stair ambulation. Short Term Goal (STG) Decrease R hip pain with prolonged sitting. STG Duration 06/04/23 Mcc Goal (LTG) Decrease R hip pain with pt able to sleep, walk, and go uphill and ascend stairs with minimal or no pain. LTG Duration 08/02/23 One Impairment Lacks appropriate self care HEP for R hip pain management Short Term Goal (STG) Pt will be educated in proper sitting and standing posture. STG Duration 06/04/23 Mcc Goal (LTG) Pt will be independent with a self care HEP of R>L hip ROM and hip/LE strengthening exercises. 05/11/23: HEP: Hip ER/IR stretch. LTG Duration 08/02/23 progressed 05/11/23 Assessment Summary Assessment L Sacral side is restricted with mobility and sacrum is in L rotation. Fair response to Sacral balancing, not able to mobilize Sacrum with R sheer and mild mob of sacral sulcus w/inferior glide. Hip mobility is symmetrical for ER , decreased L hip IR vs R hip mobility. Pt had sharp pain in R hip after treatment. Physical Therapy Plan Frequency and Duration Frequency of Treatment 2x/Week Duration of treatment (weeks) 12 Plan of Care Start Date 05/04/23 Plan of Care End Date 08/02/23 Next Visit Focus/Plan Next Note Type Treatment Note Next Visit Plan R hip rehabilitation for pain; once resolved change focus to PF rehab for mixed urinary incontinence. Start with STM manual or MH/ EStim to Lumbar/Sacral region. Next: Assess for R hip bursitis and US if + symptoms. Assess: Trunk strength Ther Ex: PF/hip strengthening (support Valgus of R knee), Stretches: L hip IR, R Sciatic & peroneal n. glides, & Trunk R rot/R SB. Monitor Alo hip ER. JMT as needed to R innominate for inflare/shift posteriorly and sacral L rotation for correction. POC focus: R hip pain resolution, then PF rehabilitation.
--- NOTE | 2023-05-25 09:03 | PT.OTN ---
Current Diagnoses Pain in right hip (05/25/23) Other specified disorders of muscle (05/25/23) Segmental and somatic dysfunction of sacral region (05/25/23) Physical Therapy Treatment Note PT-OP-A Visit Information Start: 04/17/23 20:10 Freq: Status: Active Protocol: Document 05/25/23 08:01 LRN (Rec: 05/25/23 08:58 LRN [id number]) Out-Patient Physical Therapy Visit Information Visit Information Visit Type Treatment Note Visit Start Time 08:01 Visit Stop Time 08:43 Total Visit Minutes 44 Visit Number 5 Evaluation Information Evaluation Date 05/04/23 Precautions Precautions History of lumbar surgery due to herniated disc, lobectomy, hyste. PT-OP-B Current Condition Start: 04/17/23 20:10 Freq: Status: Active Protocol: Document 05/04/23 13:21 LRN (Rec: 05/04/23 18:05 LRN [id number]) Current Condition History of Current Condition Onset Date Past 2 yrs urainry leakage. R Hip pain december. Current Complaints R hip pain primary concern, and urinary incontinence. History of Current Condition R hip pain is primary concern. 1995 had total hyste and has felt since then she has to frequently urinate. R hip pain history: Chronic R hip pain off/on, in early December of 2022 she wasn't having any hip pain, but after hiking she was going downhill, stepping into an indent with R leg, causing her to slide, jammed the R hip into the socket. She continued to hike and was able to hike until a month ago because the hills got challenging and uncomfortable. She has more pain going uphill than downhill. Prior hx of R hip pain was that she was usually stiff on both sides. Now she can't lie on either side, but the right side is worse than the left. Her pain is located below the greater trochanter. Urinary incontinence history: Urinates frequently for a lot of yrs but in the last couple of years after she urinates, she feels the need to urinate immediately afterwards on standing. She doesn't know if she has more to urinate afterwards or whether she just feels she has to urinate. She reports urinary leakage with cough, sneeze or bending over to clam picker a pot. She has had urinary leakage a couple of times when she couldn't make it to the bathroom. Currently she doesn't wear protection. Prior Treatments and Tests No recent x-rays. X-rays on both hips 10 yrs ago. Treatment Goals Patient/Caregiver Goals R hip goals: be able to sleep, walk, and go walk uphill without pain. PF goals: be able to have supreme contol of bladder, by not feeling like she has to urinate right after urinating. Pt agrees to education in breath control with coughing, sneezing and lifting and strengthening ex's. Personal Factors Other Personal Factors That May Effect Previous lower lumbar surgery Therapy/Recovery for herniated disc causing L sided pain. PT-OP-C Subjective Start: 04/17/23 20:10 Freq: Status: Active Protocol: Document 05/25/23 08:01 LRN (Rec: 05/25/23 08:58 LRN [id number]) OP-PT Subjective Patient Comments Patient Comments A little better. Much better after the manipulation lasting a 1-2 days. PT-OP-G Mobility & Gait Start: 04/17/23 20:11 Freq: Status: Active Protocol: Document 05/04/23 13:21 LRN (Rec: 05/04/23 18:05 LRN [id number]) Stair Climbing Evaluation Evaluation Level of Assist On Stairs Independent Devices Stair Climbing Assistive Devices Right Railing Technique/Endurance Stair Climbing Direction Ascend Stair Climbing Technique Step to Step Number of Steps Climbed 20 Comments Stair Climbing Comments Pain with going up stairs. PT-OP-H Neuro Start: 04/17/23 20:11 Freq: Status: Active Protocol: Document 05/04/23 13:21 LRN (Rec: 05/04/23 18:05 LRN [id number]) Sensation Evaluation Gross Sensation Gross Sensation WNL PT-OP-I Pelvic Floor Start: 04/17/23 20:10 Freq: Status: Active Protocol: Document 05/19/23 15:03 LRN (Rec: 05/19/23 16:28 LRN [id number]) Pelvic Floor Assessment Urine Urinary Symptoms Dribbling After Urination, Incomplete Emptying Leakage Cause Cough,Sneeze Nocturia 0 Pads Used In 24 Hours 0 Bowel Bowel Symptoms Constipation,Uncontrolled Flatulence Bowel Movement Frequency 3-6 [place] Stool Chart Comments Stool types range 4-6 Pelvic Clock Pelvic Clock Other Redness and dry in PF Pt performs PF contraction with substitue ms, primarily gluteal and abdominal muscles. . Prolapse Cystocele Grade 2 Urethrocele Grade 2 Prolapse Comments Can feel end of vagina (pt w/o uterus) with full index finger insertion (7cm). Perineal Descent Resting Absent Bearing Present Contraction Ability Voluntary Relaxation Moderate Manual Muscle Testing Left 2 Manual Muscle Testing Right 2 Manual Muscle Testing Anterior 0 Manual Muscle Testing Posterior 3 Muscle Endurance (Seconds) 3 Number of Quick Contractions In 10 10 Seconds Comments Pelvic Floor Comments Weak Superficial ms contraction, not easily identifiable. PT-OP-J Posture/Palpation/Skin Start: 04/17/23 20:10 Freq: Status: Active Protocol: Document 05/04/23 13:21 LRN (Rec: 05/04/23 18:05 LRN [id number]) Posture Evaluation Position Standing Head/C-Spine Posture Forward Head T-Spine Posture Increased Kyphosis L-Spine Posture Shifted Left Shoulder Posture (R) Elevated Scapula Posture (R) Elevated Arm Posture (L) Internally Rotated,(R) Internally Rotated Weight Distribution Balanced Knee Posture (R) Genu Valgus Ankle/Foot Posture (L) Calcaneal Eversion Comments Posture Comments Valgus knees: 7 deg's right, 2 deg's left. Decreased gastrocnemius ms mass on R, valgus L ankle > R. Pt reports she tends to stand on R LE out of habit. RUptured disc with pain on L side. Palpation Assessment Location Trunk Palpation Location Between lower ribs and Iliac Crest Palpation Details Decreased space on R between ribs/pelvis. R hip Palpation Location Inferior to R greater trochanter, R sacral border Palpation Findings Soft Tissue Tightness, Tenderness PT-OP-K Range of Motion Start: 04/17/23 20:10 Freq: Status: Active Protocol: Document 05/21/23 12:34 LRN (Rec: 05/21/23 13:32 LRN [id number]) Hip Goniometric Range of Motion Hip Right Passive Testing Position Supine Internal Rotation 25 External Rotation 50 Left Passive Testing Position Supine Internal Rotation 20 External Rotation 50 PT-OP-M Strength Start: 04/17/23 20:10 Freq: Status: Active Protocol: Document 05/04/23 13:21 LRN (Rec: 05/04/23 18:05 LRN [id number]) Hip Strength Hip Manual Muscle Testing Right Flexion (L2) 3 Fair Abduction 2+ Poor+ Adduction 2- Poor- External Rotation 5 Normal Internal Rotation 3 Fair Left Flexion (L2) 3 Fair Abduction 2 Poor Adduction 2 Poor External Rotation 3+ Fair+ Internal Rotation 3 Fair PT-OP-Q Treatments Start: 04/17/23 20:10 Freq: Status: Active Protocol: Document 05/25/23 08:01 LRN (Rec: 05/25/23 08:58 LRN [id number]) Therapeutic Exercises Supine Exercises TA tightening Supine Exercise Name TA tightening Reps/Minutes 10 SH x 10 Comments Extra time taken for training. Fig 4 stretch Supine Exercise Name Fig 4 stretch Side bilateral Reps/Minutes 60 SH x 1 Comments Cuing to not stretch into pain Lateral Hip stretch Supine Exercise Name Lateral Hip stretch Side left Reps/Minutes 60 SH x 1 Comments Extra time for positioning and determining max tolerated stretch. Piriformis stretch Supine Exercise Name Piriformis stretch Side left Reps/Minutes 60 SH x 2 Comments Extra time for positioning and determining max tolerated stretch Sidelying Exercises TA tightening Sidelying Exercise Name TA tightening Side bilateral Reps/Minutes 10 SH x 10 Manual Therapy Treatment Joint Mobilizations R innominate Joint R SIJ Direction Correcting R anterior rot & inflared innominate Grade II Body Position Supine Reps/Duration 13' Comments R innoimnate inflare and anter rot of innominate. Manual Techniques Sacral Balancing Type Sacral balancing Body Location Sacrum Body Position Prone Reps/Duration 5' Comments Restricted with R sacral sheer , R Infer glide, R PA of: sacral sulcus. Iliopsoas approximation. Self-Care/Home Management Treatment Education Patient Education Home Exercise Program Other Education Educated pt in proper use of cryotherapy to R hip for tenderness. Activities Self-Care/Home Management Activities Issued & reviewed Core stab ex 's for HEP: PF/TA. I/S in TA tightening in neutral in supine and sidelie. Pt to do Piriformis and Lateral Hip stretch on Left side. If wanting, Fig 4 stretch bilaterally. PT-OP-T Assessment and Plan Start: 04/17/23 20:10 Freq: Status: Active Protocol: Document 05/25/23 08:01 LRN (Rec: 05/25/23 08:58 LRN [id number]) Physical Therapy Assessment Goals Five Impairment Stress urinary incontinence Impairment Urinary leakage with cough, sneeze or bending over to clam picker a pot. Short Term Goal (STG) Pt will be educated in breath control with coughing, sneezing and lifting and strengthening ex's. STG Duration 06/21/23 Shingler Goal (LTG) Improve PF strength with pt able to cough, sneeze or bend over to clam picker an object of moderate weight wihtout urinary leakage. LTG Duration 08/02/23 Four Impairment Lacks appropriate self care HEP for urinary incontinence care. Short Term Goal (STG) Education in proper methods for transfer with coordination of breathing, PF contractions , and education in proper vulvar/genital care. 05/19/23: Pt educated in proper methods for transfers with coordination of breathing, PF contractions. STG Duration 06/21/23 progressing 05/19/23 (need ed in vulvar/genital care) Fdc Goal (LTG) Pt will be educated in Pt will be independent with a self care HEP of PF/core strengthening exercises. 05/19/23: HEP: Kegels Quick and Long Hold contractions. LTG Duration 08/02/23 progressing 05/19/23 Three Impairment Urge urinary incontinence Impairment Urinates frequently, after she urinates, she feels the need to urinate immediately afterwards on standing and sometimes when trying to make it to the bathroom. Short Term Goal (STG) Pt will be educated in urinary delay technique with ability to not leak urine when walking to the bathroom. STG Duration 06/21/23 Shingler Goal (LTG) Pt will improve PF strength and will no longer feel like she has to urinate right after urinating. LTG Duration 08/02/23 Two Impairment R hip pain with activity and sitting. Impairment Increased R hip pain, 4/10, and discomfort with prolonged sitting and with ascending walking (uphill) and stair ambulation. Short Term Goal (STG) Decrease R hip pain with prolonged sitting. STG Duration 06/04/23 Shingler Goal (LTG) Decrease R hip pain with pt able to sleep, walk, and go uphill and ascend stairs with minimal or no pain. LTG Duration 08/02/23 One Impairment Lacks appropriate self care HEP for R hip pain management Short Term Goal (STG) Pt will be educated in proper sitting and standing posture. STG Duration 06/04/23 Fdc Goal (LTG) Pt will be independent with a self care HEP of R>L hip ROM and hip/LE strengthening exercises. 05/11/23: HEP: Hip ER/IR stretch. 05/25/23: HEP: Abdominal core stab (TA tightening) progressive program and I/S in self care for pain with cryotherapy. LTG Duration 08/02/23 progressed 05/25/23 Assessment Summary Assessment TA felt in sidelie on L side, bilaterally with contraction; therefore TA weak an elongated . R leg long in supine and inflared; therefore R innominate is anteriorly rotated and inflared. Sacrum not balanced, but able to correct dysfunctions with manual mob with decrease in R hip pain after treatment. Physical Therapy Plan Frequency and Duration Frequency of Treatment 2x/Week Duration of treatment (weeks) 12 Plan of Care Start Date 05/04/23 Plan of Care End Date 08/02/23 Next Visit Focus/Plan Next Note Type Treatment Note Next Visit Plan R hip rehabilitation for pain; once resolved change focus to PF rehab for mixed urinary incontinence. As needed for decr in ms jayson, start with STM manual Lumbar/Sacral region. Next: US if + symptoms of burisits. Educate in proper posture. Assess: Trunk strength Ther Ex: PF/hip strengthening (support Valgus of R knee), Stretches: Add R Sciatic & peroneal n. glides, & Trunk R rot/R SB. Monitor Alo hip ER and improvement in L hip IR . JMT as needed to R innominate for inflare/rot and sacral rotation for correction. POC focus: R hip pain resolution, then PF rehabilitation.
--- NOTE | 2023-05-29 09:45 | PT.OTN ---
Addendum entered and electronically signed by June Thomason PTA 05/29/23 09:54: Added ball on wall gluteal region self STMs. Original Note: Current Diagnoses Pain in right hip (05/29/23) Other specified disorders of muscle (05/29/23) Segmental and somatic dysfunction of sacral region (05/29/23) Physical Therapy Treatment Note PT-OP-A Visit Information Start: 04/17/23 20:10 Freq: Status: Active Protocol: Document 05/29/23 09:05 SP (Rec: 05/29/23 09:53 SP [id number]) Out-Patient Physical Therapy Visit Information Visit Information Visit Type Treatment Note Visit Start Time 09:05 Visit Stop Time 09:45 Total Visit Minutes 40 Visit Number 6 Number of NUCLEAR REACTOR TECHNICIAN Visits 1 Evaluation Information Evaluation Date 05/04/23 Precautions Precautions History of lumbar surgery due to herniated disc, lobectomy, hyste. PT-OP-B Current Condition Start: 04/17/23 20:10 Freq: Status: Active Protocol: Document 05/04/23 13:21 LRN (Rec: 05/04/23 18:05 LRN [id number]) Current Condition History of Current Condition Onset Date Past 2 yrs urainry leakage. R Hip pain sncdecember. Current Complaints R hip pain primary concern, and urinary incontinence. History of Current Condition R hip pain is primary concern. 1995 had total hyste and has felt since then she has to frequently urinate. R hip pain history: Chronic R hip pain off/on, in early December of 2022 she wasn't having any hip pain, but after hiking she was going downhill, stepping into an indent with R leg, causing her to slide, jammed the R hip into the socket. She continued to hike and was able to hike until a month ago because the hills got challenging and uncomfortable. She has more pain going uphill than downhill. Prior hx of R hip pain was that she was usually stiff on both sides. Now she can't lie on either side, but the right side is worse than the left. Her pain is located below the greater trochanter. Urinary incontinence history: Urinates frequently for a lot of yrs but in the last couple of years after she urinates, she feels the need to urinate immediately afterwards on standing. She doesn't know if she has more to urinate afterwards or whether she just feels she has to urinate. She reports urinary leakage with cough, sneeze or bending over to pick up worker a pot. She has had urinary leakage a couple of times when she couldn't make it to the bathroom. Currently she doesn't wear protection. Prior Treatments and Tests No recent x-rays. X-rays on both hips 10 yrs ago. Treatment Goals Patient/Caregiver Goals R hip goals: be able to sleep, walk, and go walk uphill without pain. PF goals: be able to have supreme contol of bladder, by not feeling like she has to urinate right after urinating. Pt agrees to education in breath control with coughing, sneezing and lifting and strengthening ex's. Personal Factors Other Personal Factors That May Effect Previous lower lumbar surgery Therapy/Recovery for herniated disc causing L sided pain. PT-OP-C Subjective Start: 04/17/23 20:10 Freq: Status: Active Protocol: Document 05/29/23 09:05 SP (Rec: 05/29/23 09:53 SP [id number]) OP-PT Subjective Patient Comments Patient Comments Pt reports the manipulation to her sacrum has really been helping and last for few days. She said had a sharp brief pain bite in R glut area later day after last tx but went away, didn't know what did or why happened. PT-OP-G Mobility & Gait Start: 04/17/23 20:11 Freq: Status: Active Protocol: Document 05/04/23 13:21 LRN (Rec: 05/04/23 18:05 LRN [id number]) Stair Climbing Evaluation Evaluation Level of Assist On Stairs Independent Devices Stair Climbing Assistive Devices Right Railing Technique/Endurance Stair Climbing Direction Ascend Stair Climbing Technique Step to Step Number of Steps Climbed 20 Comments Stair Climbing Comments Pain with going up stairs. PT-OP-H Neuro Start: 04/17/23 20:11 Freq: Status: Active Protocol: Document 05/04/23 13:21 LRN (Rec: 05/04/23 18:05 LRN [id number]) Sensation Evaluation Gross Sensation Gross Sensation WNL PT-OP-I Pelvic Floor Start: 04/17/23 20:10 Freq: Status: Active Protocol: Document 05/19/23 15:03 LRN (Rec: 05/19/23 16:28 LRN [id number]) Pelvic Floor Assessment Urine Urinary Symptoms Dribbling After Urination, Incomplete Emptying Leakage Cause Cough,Sneeze Nocturia 0 Pads Used In 24 Hours 0 Bowel Bowel Symptoms Constipation,Uncontrolled Flatulence Bowel Movement Frequency 3-6 [place] Stool Chart Comments Stool types range 4-6 Pelvic Clock Pelvic Clock Other Redness and dry in PF Pt performs PF contraction with substitue ms, primarily gluteal and abdominal muscles. . Prolapse Cystocele Grade 2 Urethrocele Grade 2 Prolapse Comments Can feel end of vagina (pt w/o uterus) with full index finger insertion (7cm). Perineal Descent Resting Absent Bearing Present Contraction Ability Voluntary Relaxation Moderate Manual Muscle Testing Left 2 Manual Muscle Testing Right 2 Manual Muscle Testing Anterior 0 Manual Muscle Testing Posterior 3 Muscle Endurance (Seconds) 3 Number of Quick Contractions In 10 10 Seconds Comments Pelvic Floor Comments Weak Superficial ms contraction, not easily identifiable. PT-OP-J Posture/Palpation/Skin Start: 04/17/23 20:10 Freq: Status: Active Protocol: Document 05/04/23 13:21 LRN (Rec: 05/04/23 18:05 LRN [id number]) Posture Evaluation Position Standing Head/C-Spine Posture Forward Head T-Spine Posture Increased Kyphosis L-Spine Posture Shifted Left Shoulder Posture (R) Elevated Scapula Posture (R) Elevated Arm Posture (L) Internally Rotated,(R) Internally Rotated Weight Distribution Balanced Knee Posture (R) Genu Valgus Ankle/Foot Posture (L) Calcaneal Eversion Comments Posture Comments Valgus knees: 7 deg's right, 2 deg's left. Decreased gastrocnemius ms mass on R, valgus L ankle > R. Pt reports she tends to stand on R LE out of habit. RUptured disc with pain on L side. Palpation Assessment Location Trunk Palpation Location Between lower ribs and Iliac Crest Palpation Details Decreased space on R between ribs/pelvis. R hip Palpation Location Inferior to R greater trochanter, R sacral border Palpation Findings Soft Tissue Tightness, Tenderness PT-OP-K Range of Motion Start: 04/17/23 20:10 Freq: Status: Active Protocol: Document 05/21/23 12:34 LRN (Rec: 05/21/23 13:32 LRN [id number]) Hip Goniometric Range of Motion Hip Right Passive Testing Position Supine Internal Rotation 25 External Rotation 50 Left Passive Testing Position Supine Internal Rotation 20 External Rotation 50 PT-OP-M Strength Start: 04/17/23 20:10 Freq: Status: Active Protocol: Document 05/04/23 13:21 LRN (Rec: 05/04/23 18:05 LRN [id number]) Hip Strength Hip Manual Muscle Testing Right Flexion (L2) 3 Fair Abduction 2+ Poor+ Adduction 2- Poor- External Rotation 5 Normal Internal Rotation 3 Fair Left Flexion (L2) 3 Fair Abduction 2 Poor Adduction 2 Poor External Rotation 3+ Fair+ Internal Rotation 3 Fair PT-OP-Q Treatments Start: 04/17/23 20:10 Freq: Status: Active Protocol: Document 05/29/23 09:05 SP (Rec: 05/29/23 09:53 SP [id number]) Therapeutic Exercises Supine Exercises TA heel slide Supine Exercise Name added progression on HO TA tightening Supine Exercise Name TA draw in, added multifidi- use HO Reps/Minutes 10 SH x 10 Comments improved demonstration Sidelying Exercises TA tightening Sidelying Exercise Name TA tightening Side bilateral Reps/Minutes 10 SH x 10 Other Exercises child's pose Other Exercise Name added to HEP Reps/Minutes 30 Comments good feedback back stretch- declined HO Manual Therapy Treatment Soft Tissue Mobilization LB, hip/pelvis Body Location QL,ES, piriformis, glut max Mobilization Type Strumming,Sustained Pressure, Other Intensity/Depth Moderate Body Position prone over pillows Comments manual STMs, w/ hip IR&ER PROM then AROM- good feedback resp hip; pelvic tilt with QL/ ER . PT-OP-T Assessment and Plan Start: 04/17/23 20:10 Freq: Status: Active Protocol: Document 05/29/23 09:05 SP (Rec: 05/29/23 09:53 SP [id number]) Physical Therapy Assessment Goals Five Impairment Stress urinary incontinence Impairment Urinary leakage with cough, sneeze or bending over to pick up worker a pot. Short Term Goal (STG) Pt will be educated in breath control with coughing, sneezing and lifting and strengthening ex's. STG Duration 06/21/23 Mcfp Goal (LTG) Improve PF strength with pt able to cough, sneeze or bend over to pick up worker an object of moderate weight wihtout urinary leakage. LTG Duration 08/02/23 Four Impairment Lacks appropriate self care HEP for urinary incontinence care. Short Term Goal (STG) Education in proper methods for transfer with coordination of breathing, PF contractions , and education in proper vulvar/genital care. 05/19/23: Pt educated in proper methods for transfers with coordination of breathing, PF contractions. STG Duration 06/21/23 progressing 05/19/23 (need ed in vulvar/genital care) Mcfp Goal (LTG) Pt will be educated in Pt will be independent with a self care HEP of PF/core strengthening exercises. 05/19/23: HEP: Kegels Quick and Long Hold contractions. LTG Duration 08/02/23 progressing 05/19/23 Three Impairment Urge urinary incontinence Impairment Urinates frequently, after she urinates, she feels the need to urinate immediately afterwards on standing and sometimes when trying to make it to the bathroom. Short Term Goal (STG) Pt will be educated in urinary delay technique with ability to not leak urine when walking to the bathroom. STG Duration 06/21/23 Mcfp Goal (LTG) Pt will improve PF strength and will no longer feel like she has to urinate right after urinating. LTG Duration 08/02/23 Two Impairment R hip pain with activity and sitting. Impairment Increased R hip pain, 4/10, and discomfort with prolonged sitting and with ascending walking (uphill) and stair ambulation. Short Term Goal (STG) Decrease R hip pain with prolonged sitting. STG Duration 06/04/23 Propeller Engineer Goal (LTG) Decrease R hip pain with pt able to sleep, walk, and go uphill and ascend stairs with minimal or no pain. LTG Duration 08/02/23 One Impairment Lacks appropriate self care HEP for R hip pain management Short Term Goal (STG) Pt will be educated in proper sitting and standing posture. STG Duration 06/04/23 Mcfp Goal (LTG) Pt will be independent with a self care HEP of R>L hip ROM and hip/LE strengthening exercises. 05/11/23: HEP: Hip ER/IR stretch. 05/25/23: HEP: Abdominal core stab (TA tightening) progressive program and I/S in self care for pain with cryotherapy. LTG Duration 08/02/23 progressed 05/25/23 Assessment Summary Assessment Pt good response to manual,ed for self rolling gluteal region for decrease hip tension. Pt improved TA fac, added multifidi with tactile feedback and addition heel slide to HEP progression given HO previous tx. Painfree leaving. Physical Therapy Plan Frequency and Duration Frequency of Treatment 2x/Week Duration of treatment (weeks) 12 Plan of Care Start Date 05/04/23 Plan of Care End Date 08/02/23 Therapeutic Interventions Therapeutic Interventions Gait Training,Home Exercise Program,Joint Mobilizations, Manual Therapy,Neuromuscular Re-education,Self-Care/Home Management,Soft Tissue Mobilization,Therapeutic Activities,Therapeutic Exercises Modalities Cold Pack/Ice Massage,Electric Stimulation,Hot Packs Next Visit Focus/Plan Next Note Type Treatment Note Next Visit Plan Check response to manual and HEP home, added child's pose and self STM ball wall glut last tx as needed. POC: R hip rehabilitation for pain; once resolved change focus to PF rehab for mixed urinary incontinence. As needed for decr in ms tyler, start with STM manual Lumbar/Sacral region. Next: US if + symptoms of burisits. Educate in proper posture. Assess: Trunk strength Ther Ex: PF/hip strengthening (support Valgus of R knee), Stretches: Add R Sciatic & peroneal n. glides, & Trunk R rot/R SB. Monitor Alo hip ER and improvement in L hip IR . JMT as needed to R innominate for inflare/rot and sacral rotation for correction. POC focus: R hip pain resolution, then PF rehabilitation.
--- NOTE | 2023-06-02 12:21 | PT.OTN ---
Current Diagnoses Pain in right hip (06/02/23) Other specified disorders of muscle (06/02/23) Segmental and somatic dysfunction of sacral region (06/02/23) Physical Therapy Treatment Note PT-OP-A Visit Information Start: 04/17/23 20:10 Freq: Status: Active Protocol: Document 06/02/23 08:51 LRN (Rec: 06/02/23 09:36 LRN [id number]) Out-Patient Physical Therapy Visit Information Visit Information Visit Type Treatment Note Visit Start Time 08:51 Visit Stop Time 08:32 Total Visit Minutes 43 Visit Number 7 Evaluation Information Evaluation Date 05/04/23 Precautions Precautions History of lumbar surgery due to herniated disc, lobectomy, hyste. PT-OP-B Current Condition Start: 04/17/23 20:10 Freq: Status: Active Protocol: Document 05/04/23 13:21 LRN (Rec: 05/04/23 18:05 LRN [id number]) Current Condition History of Current Condition Onset Date Past 2 yrs urainry leakage. R Hip pain december. Current Complaints R hip pain primary concern, and urinary incontinence. History of Current Condition R hip pain is primary concern. 1995 had total hyste and has felt since then she has to frequently urinate. R hip pain history: Chronic R hip pain off/on, in early December of 2022 she wasn't having any hip pain, but after hiking she was going downhill, stepping into an indent with R leg, causing her to slide, jammed the R hip into the socket. She continued to hike and was able to hike until a month ago because the hills got challenging and uncomfortable. She has more pain going uphill than downhill. Prior hx of R hip pain was that she was usually stiff on both sides. Now she can't lie on either side, but the right side is worse than the left. Her pain is located below the greater trochanter. Urinary incontinence history: Urinates frequently for a lot of yrs but in the last couple of years after she urinates, she feels the need to urinate immediately afterwards on standing. She doesn't know if she has more to urinate afterwards or whether she just feels she has to urinate. 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 She has had urinary leakage a couple of times when she couldn't make it to the bathroom. Currently she doesn't wear protection. Prior Treatments and Tests No recent x-rays. X-rays on both hips 10 yrs ago. Treatment Goals Patient/Caregiver Goals R hip goals: be able to sleep, walk, and go walk uphill without pain. PF goals: be able to have supreme contol of bladder, by not feeling like she has to urinate right after urinating. Pt agrees to education in breath control with coughing, sneezing and lifting and strengthening ex's. Personal Factors Other Personal Factors That May Effect Previous lower lumbar surgery Therapy/Recovery for herniated disc causing L sided pain. PT-OP-C Subjective Start: 04/17/23 20:10 Freq: Status: Active Protocol: Document 06/02/23 08:51 LRN (Rec: 06/02/23 09:36 LRN [id number]) OP-PT Subjective Patient Comments Patient Comments Lost ex's from last session, so hasn't been doing them. Improved hip pain with less pain walking and lying on it. Not peg legging PT-OP-G Mobility & Gait Start: 04/17/23 20:11 Freq: Status: Active Protocol: Document 05/04/23 13:21 LRN (Rec: 05/04/23 18:05 LRN [id number]) Stair Climbing Evaluation Evaluation Level of Assist On Stairs Independent Devices Stair Climbing Assistive Devices Right Railing Technique/Endurance Stair Climbing Direction Ascend Stair Climbing Technique Step to Step Number of Steps Climbed 20 Comments Stair Climbing Comments Pain with going up stairs. PT-OP-H Neuro Start: 04/17/23 20:11 Freq: Status: Active Protocol: Document 05/04/23 13:21 LRN (Rec: 05/04/23 18:05 LRN [id number]) Sensation Evaluation Gross Sensation Gross Sensation WNL PT-OP-I Pelvic Floor Start: 04/17/23 20:10 Freq: Status: Active Protocol: Document 05/19/23 15:03 LRN (Rec: 05/19/23 16:28 LRN [id number]) Pelvic Floor Assessment Urine Urinary Symptoms Dribbling After Urination, Incomplete Emptying Leakage Cause Cough,Sneeze Nocturia 0 Pads Used In 24 Hours 0 Bowel Bowel Symptoms Constipation,Uncontrolled Flatulence Bowel Movement Frequency 3-6 [place] Stool Chart Comments Stool types range 4-6 Pelvic Clock Pelvic Clock Other Redness and dry in PF Pt performs PF contraction with substitue ms, primarily gluteal and abdominal muscles. . Prolapse Cystocele Grade 2 Urethrocele Grade 2 Prolapse Comments Can feel end of vagina (pt w/o uterus) with full index finger insertion (7cm). Perineal Descent Resting Absent Bearing Present Contraction Ability Voluntary Relaxation Moderate Manual Muscle Testing Left 2 Manual Muscle Testing Right 2 Manual Muscle Testing Anterior 0 Manual Muscle Testing Posterior 3 Muscle Endurance (Seconds) 3 Number of Quick Contractions In 10 10 Seconds Comments Pelvic Floor Comments Weak Superficial ms contraction, not easily identifiable. PT-OP-J Posture/Palpation/Skin Start: 04/17/23 20:10 Freq: Status: Active Protocol: Document 05/04/23 13:21 LRN (Rec: 05/04/23 18:05 LRN [id number]) Posture Evaluation Position Standing Head/C-Spine Posture Forward Head T-Spine Posture Increased Kyphosis L-Spine Posture Shifted Left Shoulder Posture (R) Elevated Scapula Posture (R) Elevated Arm Posture (L) Internally Rotated,(R) Internally Rotated Weight Distribution Balanced Knee Posture (R) Genu Valgus Ankle/Foot Posture (L) Calcaneal Eversion Comments Posture Comments Valgus knees: 7 deg's right, 2 deg's left. Decreased gastrocnemius ms mass on R, valgus L ankle > R. Pt reports she tends to stand on R LE out of habit. RUptured disc with pain on L side. Palpation Assessment Location Trunk Palpation Location Between lower ribs and Iliac Crest Palpation Details Decreased space on R between ribs/pelvis. R hip Palpation Location Inferior to R greater trochanter, R sacral border Palpation Findings Soft Tissue Tightness, Tenderness PT-OP-K Range of Motion Start: 04/17/23 20:10 Freq: Status: Active Protocol: Document 05/21/23 12:34 LRN (Rec: 05/21/23 13:32 LRN [id number]) Hip Goniometric Range of Motion Hip Right Passive Testing Position Supine Internal Rotation 25 External Rotation 50 Left Passive Testing Position Supine Internal Rotation 20 External Rotation 50 PT-OP-M Strength Start: 04/17/23 20:10 Freq: Status: Active Protocol: Document 05/04/23 13:21 LRN (Rec: 05/04/23 18:05 LRN [id number]) Hip Strength Hip Manual Muscle Testing Right Flexion (L2) 3 Fair Abduction 2+ Poor+ Adduction 2- Poor- External Rotation 5 Normal Internal Rotation 3 Fair Left Flexion (L2) 3 Fair Abduction 2 Poor Adduction 2 Poor External Rotation 3+ Fair+ Internal Rotation 3 Fair PT-OP-Q Treatments Start: 04/17/23 20:10 Freq: Status: Active Protocol: Document 06/02/23 08:51 LRN (Rec: 06/02/23 09:36 LRN [id number]) Therapeutic Exercises Supine Exercises TA heel slide Supine Exercise Name Bilateral HS w/TA/PF/Mutifidus /Breathing - added PF/ multifidus/breath Side bilateral Reps/Minutes 10x Comments Cued for TA w/PF & Mutlifidus/ breath TA tightening Supine Exercise Name TA/PF/multifidus/Breathing Reps/Minutes 10 SH x 10 Comments Cued for TA w/PF & Mutlifidus/ breath Sidelying Exercises TA tightening Sidelying Exercise Name TA tightening - DC'd R sidelie after treatment Side bilateral Reps/Minutes 10 SH x 10 L sidelie, x 5 R sidelie Comments Cuing to tighten TA/Multifidus /PF with exhale on mvmt. Other Exercises child's pose Other Exercise Name Child's Pose - HEP Reps/Minutes 30 x 2 Comments Cuing for even stretch in LB. Manual Therapy Treatment Joint Mobilizations R innominate Joint R SIJ Direction Correcting R anterior rot innominate Grade II Body Position Supine Reps/Duration 15' Comments R innoimnate inflare and anter rot of innominate, correction x 2. L innominate Joint L SIJ Direction Correction for L outflare x 2 Grade II Body Position Supine Reps/Duration 5' x 2 Comments Extra time taken to assess pelvic positioning. Self-Care/Home Management Treatment Activities Self-Care/Home Management Activities Re-issued updated HEP at pt request due to loss of handout . PT-OP-T Assessment and Plan Start: 04/17/23 20:10 Freq: Status: Active Protocol: Document 06/02/23 08:51 LRN (Rec: 06/02/23 09:36 LRN [id number]) Physical Therapy Assessment Goals Five Impairment Stress urinary incontinence Impairment Urinary leakage with cough, sneeze or bending over to forklift picker a pot. Short Term Goal (STG) Pt will be educated in breath control with coughing, sneezing and lifting and strengthening ex's. STG Duration 06/21/23 Custodial Goal (LTG) Improve PF strength with pt able to cough, sneeze or bend over to forklift picker an object of moderate weight wihtout urinary leakage. LTG Duration 08/02/23 Four Impairment Lacks appropriate self care HEP for urinary incontinence care. Short Term Goal (STG) Education in proper methods for transfer with coordination of breathing, PF contractions , and education in proper vulvar/genital care. 05/19/23: Pt educated in proper methods for transfers with coordination of breathing, PF contractions. STG Duration 06/21/23 progressing 05/19/23 (need ed in vulvar/genital care) Business Analytics Specialist Goal (LTG) Pt will be educated in Pt will be independent with a self care HEP of PF/core strengthening exercises. 05/19/23: HEP: Kegels Quick and Long Hold contractions. LTG Duration 08/02/23 progressing 05/19/23 Three Impairment Urge urinary incontinence Impairment Urinates frequently, after she urinates, she feels the need to urinate immediately afterwards on standing and sometimes when trying to make it to the bathroom. Short Term Goal (STG) Pt will be educated in urinary delay technique with ability to not leak urine when walking to the bathroom. STG Duration 06/21/23 Custodial Goal (LTG) Pt will improve PF strength and will no longer feel like she has to urinate right after urinating. LTG Duration 08/02/23 Two Impairment R hip pain with activity and sitting. Impairment Increased R hip pain, 4/10, and discomfort with prolonged sitting and with ascending walking (uphill) and stair ambulation. Short Term Goal (STG) Decrease R hip pain with prolonged sitting. STG Duration 06/04/23 Business Analytics Specialist Goal (LTG) Decrease R hip pain with pt able to sleep, walk, and go uphill and ascend stairs with minimal or no pain. LTG Duration 08/02/23 One Impairment Lacks appropriate self care HEP for R hip pain management Short Term Goal (STG) Pt will be educated in proper sitting and standing posture. STG Duration 06/04/23 Custodial Goal (LTG) Pt will be independent with a self care HEP of R>L hip ROM and hip/LE strengthening exercises. 05/11/23: HEP: Hip ER/IR stretch. 05/25/23: HEP: Abdominal core stab (TA tightening) progressive program and I/S in self care for pain with cryotherapy. LTG Duration 08/02/23 progressed 05/25/23 Assessment Summary Assessment + response to manual therapy with reports of decreased R hip pain with walking and positioning. Pt not able to maintain stability. TA R sidelie caused inflare R innominate and coorection needed on L for outflared innominate; therefore DC'd in R sidelie. Pt more stiff ending due to Mob of R/L innominate. Physical Therapy Plan Frequency and Duration Frequency of Treatment 2x/Week Duration of treatment (weeks) 12 Plan of Care Start Date 05/04/23 Plan of Care End Date 08/02/23 Next Visit Focus/Plan Next Note Type Treatment Note Next Visit Plan Monitor for L innominate outflare and R anterior innominate and correct as needed before core stab. POC: R hip rehabilitation for pain; once resolved change focus to PF rehab for mixed urinary incontinence. As needed for decr in ms jayson, start with STM manual Lumbar/Sacral region. Next: US if + symptoms of burisits. Educate in proper posture. Assess: Trunk strength Ther Ex: PF/hip strengthening (support Valgus of R knee), Stretches: Add R Sciatic & peroneal n. glides, & Trunk R rot/R SB. Monitor Alo hip ER and improvement in L hip IR . JMT as needed to R innominate for inflare/rot and sacral rotation for correction. POC focus: R hip pain resolution, then PF rehabilitation.
--- NOTE | 2023-06-08 10:54 | PT.OTN ---
Current Diagnoses Pain in right hip (06/08/23) Other specified disorders of muscle (06/08/23) Segmental and somatic dysfunction of sacral region (06/08/23) Physical Therapy Treatment Note PT-OP-A Visit Information Start: 04/17/23 20:10 Freq: Status: Active Protocol: Document 06/08/23 08:49 LRN (Rec: 06/08/23 09:34 LRN [id number]) Out-Patient Physical Therapy Visit Information Visit Information Visit Type Treatment Note Visit Start Time 08:49 Visit Stop Time 09:32 Total Visit Minutes 45 Visit Number 8 Evaluation Information Evaluation Date 05/04/23 Precautions Precautions History of lumbar surgery due to herniated disc, lobectomy, hyste. PT-OP-B Current Condition Start: 04/17/23 20:10 Freq: Status: Active Protocol: Document 05/04/23 13:21 LRN (Rec: 05/04/23 18:05 LRN [id number]) Current Condition History of Current Condition Onset Date Past 2 yrs urainry leakage. R Hip pain december. Current Complaints R hip pain primary concern, and urinary incontinence. History of Current Condition R hip pain is primary concern. 1995 had total hyste and has felt since then she has to frequently urinate. R hip pain history: Chronic R hip pain off/on, in early December of 2022 she wasn't having any hip pain, but after hiking she was going downhill, stepping into an indent with R leg, causing her to slide, jammed the R hip into the socket. She continued to hike and was able to hike until a month ago because the hills got challenging and uncomfortable. She has more pain going uphill than downhill. Prior hx of R hip pain was that she was usually stiff on both sides. Now she can't lie on either side, but the right side is worse than the left. Her pain is located below the greater trochanter. Urinary incontinence history: Urinates frequently for a lot of yrs but in the last couple of years after she urinates, she feels the need to urinate immediately afterwards on standing. She doesn't know if she has more to urinate afterwards or whether she just feels she has to urinate. 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 She has had urinary leakage a couple of times when she couldn't make it to the bathroom. Currently she doesn't wear protection. Prior Treatments and Tests No recent x-rays. X-rays on both hips 10 yrs ago. Treatment Goals Patient/Caregiver Goals R hip goals: be able to sleep, walk, and go walk uphill without pain. PF goals: be able to have supreme contol of bladder, by not feeling like she has to urinate right after urinating. Pt agrees to education in breath control with coughing, sneezing and lifting and strengthening ex's. Personal Factors Other Personal Factors That May Effect Previous lower lumbar surgery Therapy/Recovery for herniated disc causing L sided pain. PT-OP-C Subjective Start: 04/17/23 20:10 Freq: Status: Active Protocol: Document 06/08/23 08:49 LRN (Rec: 06/08/23 09:34 LRN [id number]) OP-PT Subjective Patient Comments Patient Comments Questions regarding HEP issued . R hip pain walking is 1-2/ 10, but hasn't been walking for exercise. Can sit for 1-2 hrs probably. PT-OP-G Mobility & Gait Start: 04/17/23 20:11 Freq: Status: Active Protocol: Document 05/04/23 13:21 LRN (Rec: 05/04/23 18:05 LRN [id number]) Stair Climbing Evaluation Evaluation Level of Assist On Stairs Independent Devices Stair Climbing Assistive Devices Right Railing Technique/Endurance Stair Climbing Direction Ascend Stair Climbing Technique Step to Step Number of Steps Climbed 20 Comments Stair Climbing Comments Pain with going up stairs. PT-OP-H Neuro Start: 04/17/23 20:11 Freq: Status: Active Protocol: Document 05/04/23 13:21 LRN (Rec: 05/04/23 18:05 LRN [id number]) Sensation Evaluation Gross Sensation Gross Sensation WNL PT-OP-I Pelvic Floor Start: 04/17/23 20:10 Freq: Status: Active Protocol: Document 05/19/23 15:03 LRN (Rec: 05/19/23 16:28 LRN [id number]) Pelvic Floor Assessment Urine Urinary Symptoms Dribbling After Urination, Incomplete Emptying Leakage Cause Cough,Sneeze Nocturia 0 Pads Used In 24 Hours 0 Bowel Bowel Symptoms Constipation,Uncontrolled Flatulence Bowel Movement Frequency 3-6 Superior Stool Chart Comments Stool types range 4-6 Pelvic Clock Pelvic Clock Other Redness and dry in PF Pt performs PF contraction with substitue ms, primarily gluteal and abdominal muscles. . Prolapse Cystocele Grade 2 Urethrocele Grade 2 Prolapse Comments Can feel end of vagina (pt w/o uterus) with full index finger insertion (7cm). Perineal Descent Resting Absent Bearing Present Contraction Ability Voluntary Relaxation Moderate Manual Muscle Testing Left 2 Manual Muscle Testing Right 2 Manual Muscle Testing Anterior 0 Manual Muscle Testing Posterior 3 Muscle Endurance (Seconds) 3 Number of Quick Contractions In 10 10 Seconds Comments Pelvic Floor Comments Weak Superficial ms contraction, not easily identifiable. PT-OP-J Posture/Palpation/Skin Start: 04/17/23 20:10 Freq: Status: Active Protocol: Document 05/04/23 13:21 LRN (Rec: 05/04/23 18:05 LRN [id number]) Posture Evaluation Position Standing Head/C-Spine Posture Forward Head T-Spine Posture Increased Kyphosis L-Spine Posture Shifted Left Shoulder Posture (R) Elevated Scapula Posture (R) Elevated Arm Posture (L) Internally Rotated,(R) Internally Rotated Weight Distribution Balanced Knee Posture (R) Genu Valgus Ankle/Foot Posture (L) Calcaneal Eversion Comments Posture Comments Valgus knees: 7 deg's right, 2 deg's left. Decreased gastrocnemius ms mass on R, valgus L ankle > R. Pt reports she tends to stand on R LE out of habit. RUptured disc with pain on L side. Palpation Assessment Location Trunk Palpation Location Between lower ribs and Iliac Crest Palpation Details Decreased space on R between ribs/pelvis. R hip Palpation Location Inferior to R greater trochanter, R sacral border Palpation Findings Soft Tissue Tightness, Tenderness PT-OP-K Range of Motion Start: 04/17/23 20:10 Freq: Status: Active Protocol: Document 05/21/23 12:34 LRN (Rec: 05/21/23 13:32 LRN [id number]) Hip Goniometric Range of Motion Hip Right Passive Testing Position Supine Internal Rotation 25 External Rotation 50 Left Passive Testing Position Supine Internal Rotation 20 External Rotation 50 PT-OP-M Strength Start: 04/17/23 20:10 Freq: Status: Active Protocol: Document 05/04/23 13:21 LRN (Rec: 05/04/23 18:05 LRN [id number]) Hip Strength Hip Manual Muscle Testing Right Flexion (L2) 3 Fair Abduction 2+ Poor+ Adduction 2- Poor- External Rotation 5 Normal Internal Rotation 3 Fair Left Flexion (L2) 3 Fair Abduction 2 Poor Adduction 2 Poor External Rotation 3+ Fair+ Internal Rotation 3 Fair PT-OP-Q Treatments Start: 04/17/23 20:10 Freq: Status: Active Protocol: Document 06/08/23 08:49 LRN (Rec: 06/08/23 09:34 LR [id number]) Therapeutic Exercises Supine Exercises Bridging Supine Exercise Name Bridging hold 3 breaths Reps/Minutes 3 breath hold x 10 Comments Cuing to breathx 3, neutral spine position,equal LE WBing Fig 4 stretch Supine Exercise Name Reviewed Reps/Minutes 1x Comments Cued norms of mvmt during stretch Lateral Hip stretch Supine Exercise Name Reviewed Side left Reps/Minutes 1x Comments Cuing for side to focus Piriformis stretch Supine Exercise Name Reviewed Side left Reps/Minutes 1x Comments Cuing for side to focus Sidelying Exercises TA tightening Sidelying Exercise Name TA tightening - DC'd R sidelie after treatment Side bilateral Resistance Educated L side weak; therefore on L side another week. Reps/Minutes 10 SH x 10 L sidelie Comments Cuing L side: TA/Multifidus/PF w/exhale on mvmt. Standing Exercises // bar squats Standing Exercise Name // bar squats for glut ex Reps/Minutes 4' Comments Cuing for posture and equal WBing thru legs and varying squat position Wall squats Standing Exercise Name Wall squats holding and up/ down, for quad strengthening Reps/Minutes 10' Comments Cuing for posture and equal WBing thru legs. Self-Care/Home Management Treatment Education Patient Education Home Exercise Program Other Education Discussed # of times to do ex' s per week and reviewed hip stretches to do on HEP. Activities Self-Care/Home Management Activities Issued & reviewed HEP: Wall squats. PT-OP-T Assessment and Plan Start: 04/17/23 20:10 Freq: Status: Active Protocol: Document 06/08/23 08:49 LRN (Rec: 06/08/23 09:34 [facility] [id number]) Physical Therapy Assessment Goals Five Impairment Stress urinary incontinence Impairment Urinary leakage with cough, sneeze or bending over to picker box operator a pot. Short Term Goal (STG) Pt will be educated in breath control with coughing, sneezing and lifting and strengthening ex's. STG Duration 06/21/23 Shaper And Presser Goal (LTG) Improve PF strength with pt able to cough, sneeze or bend over to picker box operator an object of moderate weight wihtout urinary leakage. LTG Duration 08/02/23 Four Impairment Lacks appropriate self care HEP for urinary incontinence care. Short Term Goal (STG) Education in proper methods for transfer with coordination of breathing, PF contractions , and education in proper vulvar/genital care. 05/19/23: Pt educated in proper methods for transfers with coordination of breathing, PF contractions. STG Duration 06/21/23 progressing 05/19/23 (need ed in vulvar/genital care) Shaper And Presser Goal (LTG) Pt will be educated in Pt will be independent with a self care HEP of PF/core strengthening exercises. 05/19/23: HEP: Kegels Quick and Long Hold contractions. LTG Duration 08/02/23 progressing 05/19/23 Three Impairment Urge urinary incontinence Impairment Urinates frequently, after she urinates, she feels the need to urinate immediately afterwards on standing and sometimes when trying to make it to the bathroom. Short Term Goal (STG) Pt will be educated in urinary delay technique with ability to not leak urine when walking to the bathroom. STG Duration 06/21/23 Shaper And Presser Goal (LTG) Pt will improve PF strength and will no longer feel like she has to urinate right after urinating. LTG Duration 08/02/23 Two Impairment R hip pain with activity and sitting. Impairment Increased R hip pain, 4/10, and discomfort with prolonged sitting and with ascending walking (uphill) and stair ambulation. Short Term Goal (STG) Decrease R hip pain with prolonged sitting. 06/08/23: Can sit for 1-2 hrs. Stairs and walking is 1-2/10 . STG Duration 06/04/23 (06/08/23: MET GOAL, pain 1-2/10 w/sitting, stairs , walking) Shaper And Presser Goal (LTG) Decrease R hip pain with pt able to sleep, walk, and go uphill and ascend stairs with minimal or no pain. 06/08/23: Able to sleep much better with hip pain not keeping her awake; able to walk, ascend stairs with minimal pain rated 1-2/10. LTG Duration 08/02/23 progressed 06/08/23 ( min pain, uphill gait not assessed). One Impairment Lacks appropriate self care HEP for R hip pain management Short Term Goal (STG) Pt will be educated in proper sitting and standing posture. 06/08/23: Educated and issued handout of proper sitting & standing posture. STG Duration 06/04/23 (06/08/23: MET GOAL ) Retirement Goal (LTG) Pt will be independent with a self care HEP of R>L hip ROM and hip/LE strengthening exercises. 05/11/23: HEP: Hip ER/IR stretch. 05/25/23: HEP: Abdominal core stab (TA tightening) progressive program and I/S in self care for pain with cryotherapy. 06/08/23: HEP: Wall squats issued. LTG Duration 08/02/23 progressed 06/08/23 Progress Towards Goals Progress Comments Progressed HEP. Assessment Summary Assessment No innominate R anterior rotation, appears level; therefore focus on stability today. Pt has pain 1-2/10, hoping to get further relief. Physical Therapy Plan Frequency and Duration Frequency of Treatment 2x/Week Duration of treatment (weeks) 12 Plan of Care Start Date 05/04/23 Plan of Care End Date 08/02/23 Next Visit Focus/Plan Next Note Type Treatment Note Next Visit Plan Monitor for L innominate outflare and R anterior innominate and correct as needed before core stab. Assess: Trunk strength To decr pain/ms guarding, start with STM manual L Piriformis/Sacral region or ther ex (below) Ther Ex: PF/hip strengthening (support Valgus of R knee), Stretches: Add R Sciatic & peroneal n. glides, & Trunk R rot/R SB. (Monitor Alo hip ER and improvement in L hip IR). US if + symptoms of burisits. JMT as needed to R innominate for inflare/rot and sacral rotation for correction. POC focus: R hip pain resolution, then PF rehabilitation.
--- NOTE | 2023-06-17 12:45 | PT.OTN ---
Current Diagnoses Pain in right hip (06/17/23) Other specified disorders of muscle (06/17/23) Segmental and somatic dysfunction of sacral region (06/17/23) Physical Therapy Treatment Note PT-OP-A Visit Information Start: 04/17/23 20:10 Freq: Status: Active Protocol: Document 06/17/23 11:59 SP (Rec: 06/17/23 12:50 SP [id number]) Out-Patient Physical Therapy Visit Information Visit Information Visit Type Treatment Note Visit Note Next tx 10th visit PN. Visit Start Time 12:00 Visit Stop Time 12:45 Total Visit Minutes 45 Visit Number 9 Number of CMM INSPECTOR Visits 1 Evaluation Information Evaluation Date 05/04/23 Precautions Precautions History of lumbar surgery due to herniated disc, lobectomy, hyste. PT-OP-B Current Condition Start: 04/17/23 20:10 Freq: Status: Active Protocol: Document 05/04/23 13:21 LRN (Rec: 05/04/23 18:05 LRN [id number]) Current Condition History of Current Condition Onset Date Past 2 yrs urainry leakage. R Hip pain sncdecember. Current Complaints R hip pain primary concern, and urinary incontinence. History of Current Condition R hip pain is primary concern. 1995 had total hyste and has felt since then she has to frequently urinate. R hip pain history: Chronic R hip pain off/on, in early December of 2022 she wasn't having any hip pain, but after hiking she was going downhill, stepping into an indent with R leg, causing her to slide, jammed the R hip into the socket. She continued to hike and was able to hike until a month ago because the hills got challenging and uncomfortable. She has more pain going uphill than downhill. Prior hx of R hip pain was that she was usually stiff on both sides. Now she can't lie on either side, but the right side is worse than the left. Her pain is located below the greater trochanter. Urinary incontinence history: Urinates frequently for a lot of yrs but in the last couple of years after she urinates, she feels the need to urinate immediately afterwards on standing. She doesn't know if she has more to urinate afterwards or whether she just feels she has to urinate. She reports urinary leakage with cough, sneeze or bending over to pickling operator a pot. She has had urinary leakage a couple of times when she couldn't make it to the bathroom. Currently she doesn't wear protection. Prior Treatments and Tests No recent x-rays. X-rays on both hips 10 yrs ago. Treatment Goals Patient/Caregiver Goals R hip goals: be able to sleep, walk, and go walk uphill without pain. PF goals: be able to have supreme contol of bladder, by not feeling like she has to urinate right after urinating. Pt agrees to education in breath control with coughing, sneezing and lifting and strengthening ex's. Personal Factors Other Personal Factors That May Effect Previous lower lumbar surgery Therapy/Recovery for herniated disc causing L sided pain. PT-OP-C Subjective Start: 04/17/23 20:10 Freq: Status: Active Protocol: Document 06/17/23 11:59 SP (Rec: 06/17/23 12:50 SP [id number]) OP-PT Subjective Patient Comments Patient Comments Pt still R pain R hip sensitivity over the weekend, pain when walks up hill. PT-OP-G Mobility & Gait Start: 04/17/23 20:11 Freq: Status: Active Protocol: Document 05/04/23 13:21 LRN (Rec: 05/04/23 18:05 LRN [id number]) Stair Climbing Evaluation Evaluation Level of Assist On Stairs Independent Devices Stair Climbing Assistive Devices Right Railing Technique/Endurance Stair Climbing Direction Ascend Stair Climbing Technique Step to Step Number of Steps Climbed 20 Comments Stair Climbing Comments Pain with going up stairs. PT-OP-H Neuro Start: 04/17/23 20:11 Freq: Status: Active Protocol: Document 05/04/23 13:21 LRN (Rec: 05/04/23 18:05 LRN [id number]) Sensation Evaluation Gross Sensation Gross Sensation WNL PT-OP-I Pelvic Floor Start: 04/17/23 20:10 Freq: Status: Active Protocol: Document 05/19/23 15:03 LRN (Rec: 05/19/23 16:28 LRN [id number]) Pelvic Floor Assessment Urine Urinary Symptoms Dribbling After Urination, Incomplete Emptying Leakage Cause Cough,Sneeze Nocturia 0 Pads Used In 24 Hours 0 Bowel Bowel Symptoms Constipation,Uncontrolled Flatulence Bowel Movement Frequency 3-6 [place] Stool Chart Comments Stool types range 4-6 Pelvic Clock Pelvic Clock Other Redness and dry in PF Pt performs PF contraction with substitue ms, primarily gluteal and abdominal muscles. . Prolapse Cystocele Grade 2 Urethrocele Grade 2 Prolapse Comments Can feel end of vagina (pt w/o uterus) with full index finger insertion (7cm). Perineal Descent Resting Absent Bearing Present Contraction Ability Voluntary Relaxation Moderate Manual Muscle Testing Left 2 Manual Muscle Testing Right 2 Manual Muscle Testing Anterior 0 Manual Muscle Testing Posterior 3 Muscle Endurance (Seconds) 3 Number of Quick Contractions In 10 10 Seconds Comments Pelvic Floor Comments Weak Superficial ms contraction, not easily identifiable. PT-OP-J Posture/Palpation/Skin Start: 04/17/23 20:10 Freq: Status: Active Protocol: Document 05/04/23 13:21 LRN (Rec: 05/04/23 18:05 LRN [id number]) Posture Evaluation Position Standing Head/C-Spine Posture Forward Head T-Spine Posture Increased Kyphosis L-Spine Posture Shifted Left Shoulder Posture (R) Elevated Scapula Posture (R) Elevated Arm Posture (L) Internally Rotated,(R) Internally Rotated Weight Distribution Balanced Knee Posture (R) Genu Valgus Ankle/Foot Posture (L) Calcaneal Eversion Comments Posture Comments Valgus knees: 7 deg's right, 2 deg's left. Decreased gastrocnemius ms mass on R, valgus L ankle > R. Pt reports she tends to stand on R LE out of habit. RUptured disc with pain on L side. Palpation Assessment Location Trunk Palpation Location Between lower ribs and Iliac Crest Palpation Details Decreased space on R between ribs/pelvis. R hip Palpation Location Inferior to R greater trochanter, R sacral border Palpation Findings Soft Tissue Tightness, Tenderness PT-OP-K Range of Motion Start: 04/17/23 20:10 Freq: Status: Active Protocol: Document 05/21/23 12:34 LRN (Rec: 05/21/23 13:32 LRN [id number]) Hip Goniometric Range of Motion Hip Right Passive Testing Position Supine Internal Rotation 25 External Rotation 50 Left Passive Testing Position Supine Internal Rotation 20 External Rotation 50 PT-OP-M Strength Start: 04/17/23 20:10 Freq: Status: Active Protocol: Document 05/04/23 13:21 LRN (Rec: 05/04/23 18:05 LRN [id number]) Hip Strength Hip Manual Muscle Testing Right Flexion (L2) 3 Fair Abduction 2+ Poor+ Adduction 2- Poor- External Rotation 5 Normal Internal Rotation 3 Fair Left Flexion (L2) 3 Fair Abduction 2 Poor Adduction 2 Poor External Rotation 3+ Fair+ Internal Rotation 3 Fair PT-OP-Q Treatments Start: 04/17/23 20:10 Freq: Status: Active Protocol: Document 06/17/23 11:59 SP (Rec: 06/17/23 12:50 SP [id number]) Therapeutic Exercises Supine Exercises Fig 4 stretch Supine Exercise Name Reviewed Side right Resistance R ankle over L thigh Reps/Minutes 30 Comments good feedback anterolateral R hip stretch Lateral Hip stretch Supine Exercise Name Reviewed- shift over R front pelvis Side left Resistance opp RLE extended Reps/Minutes 1' Comments Cuing for L side to focus Piriformis stretch Supine Exercise Name Reviewed Side left Resistance RLe extended straight Reps/Minutes 1' hold Comments Cuing for L side to focus Standing Exercises // bar squats Standing Exercise Name // bar squats for glut ex Equipment Used eccentric squat rail support front Reps/Minutes 1 min x4 reps Comments Cuing for posture and equal WBing thru legs and varying squat position Wall squats Standing Exercise Name Wall squats holding and up/ down, for quad strengthening Reps/Minutes 1 ' x3 reps Comments Cuing for posture and equal WBing thru legs. Manual Therapy Treatment Soft Tissue Mobilization LB, hip/pelvis Body Location QL,ES, piriformis, glut max Mobilization Type Strumming,Sustained Pressure, Other Intensity/Depth Moderate Body Position prone over pillows Comments manual STMs, w/ hip IR&ER PROM then AROM- good feedback resp less R hip tension Joint Mobilizations L innominate Joint L SIJ Direction Correction for L outflare Grade II Body Position Prone Reps/Duration 30 x3 Comments PA pressure PT-OP-T Assessment and Plan Start: 04/17/23 20:10 Freq: Status: Active Protocol: Document 06/17/23 11:59 SP (Rec: 06/17/23 12:50 SP [id number]) Physical Therapy Assessment Goals Five Impairment Stress urinary incontinence Impairment Urinary leakage with cough, sneeze or bending over to pickling operator a pot. Short Term Goal (STG) Pt will be educated in breath control with coughing, sneezing and lifting and strengthening ex's. 06/17/23: discussion of use keigal ex for PF support. WIll focus more on later few weeks , focus on LE strengthening right now. STG Duration 06/21/23 updated 06/17/23 Senior Living Goal (LTG) Improve PF strength with pt able to cough, sneeze or bend over to pickling operator an object of moderate weight wihtout urinary leakage. LTG Duration 08/02/23 Four Impairment Lacks appropriate self care HEP for urinary incontinence care. Short Term Goal (STG) Education in proper methods for transfer with coordination of breathing, PF contractions , and education in proper vulvar/genital care. 05/19/23: Pt educated in proper methods for transfers with coordination of breathing, PF contractions. STG Duration 06/21/23 progressing 05/19/23 (need ed in vulvar/genital care) Senior Living Goal (LTG) Pt will be educated in Pt will be independent with a self care HEP of PF/core strengthening exercises. 05/19/23: HEP: Kegels Quick and Long Hold contractions. LTG Duration 08/02/23 progressing 05/19/23 Three Impairment Urge urinary incontinence Impairment Urinates frequently, after she urinates, she feels the need to urinate immediately afterwards on standing and sometimes when trying to make it to the bathroom. Short Term Goal (STG) Pt will be educated in urinary delay technique with ability to not leak urine when walking to the bathroom. 06/17/23: discussed perform Keigal engagement until urgent feeling goes away then go to bathroon reeducating PF for strength support. STG Duration 06/21/23 updated 06/17/23 Anesthesiology Physician Goal (LTG) Pt will improve PF strength and will no longer feel like she has to urinate right after urinating. LTG Duration 08/02/23 Two Impairment R hip pain with activity and sitting. Impairment Increased R hip pain, 4/10, and discomfort with prolonged sitting and with ascending walking (uphill) and stair ambulation. Short Term Goal (STG) Decrease R hip pain with prolonged sitting. 06/08/23: Can sit for 1-2 hrs. Stairs and walking is 1-2/10 . STG Duration 06/04/23 (06/08/23: MET GOAL, pain 1-2/10 w/sitting, stairs , walking) Anesthesiology Physician Goal (LTG) Decrease R hip pain with pt able to sleep, walk, and go uphill and ascend stairs with minimal or no pain. 06/08/23: Able to sleep much better with hip pain not keeping her awake; able to walk, ascend stairs with minimal pain rated 1-2/10. LTG Duration 08/02/23 progressed 06/08/23 ( min pain, uphill gait not assessed). One Impairment Lacks appropriate self care HEP for R hip pain management Short Term Goal (STG) Pt will be educated in proper sitting and standing posture. 06/08/23: Educated and issued handout of proper sitting & standing posture. STG Duration 06/04/23 (06/08/23: MET GOAL ) Anesthesiology Physician Goal (LTG) Pt will be independent with a self care HEP of R>L hip ROM and hip/LE strengthening exercises. 05/11/23: HEP: Hip ER/IR stretch. 05/25/23: HEP: Abdominal core stab (TA tightening) progressive program and I/S in self care for pain with cryotherapy. 06/08/23: HEP: Wall squats issued. LTG Duration 08/02/23 progressed 06/08/23 Assessment Summary Assessment Pt reports decreased pain post manual, stretching and strengthening HEP review. Cued for trunk positioning as needed during wall sits good quad fac reports and engage gluteal contraction asc/desc mini squat at rail. Pt's trunk is R SB and slight rotated to R when walks noticed leaving, see plan for helping correct and education awareness. Physical Therapy Plan Frequency and Duration Frequency of Treatment 2x/Week Duration of treatment (weeks) 12 Plan of Care Start Date 05/04/23 Plan of Care End Date 08/02/23 Therapeutic Interventions Therapeutic Interventions Gait Training,Home Exercise Program,Joint Mobilizations, Manual Therapy,Neuromuscular Re-education,Self-Care/Home Management,Soft Tissue Mobilization,Therapeutic Activities,Therapeutic Exercises Modalities Cold Pack/Ice Massage,Electric Stimulation,Hot Packs Next Visit Focus/Plan Next Note Type Progress Note Next Visit Plan Next tx 10th visit PN, add R UE ex (mcdonald/DB wt carry)/ L SB stretch to R trunk assist spinal spinal alignment walking. POC: Monitor for L innominate outflare and R anterior innominate and correct as needed before core stab. Assess: Trunk strength To decr pain/ms guarding, start with STM manual L Piriformis/Sacral region or ther ex (below) Ther Ex: PF/hip strengthening (support Valgus of R knee), Stretches: Add R Sciatic & peroneal n. glides, & Trunk R rot/R SB. (Monitor Alo hip ER and improvement in L hip IR). US if + symptoms of burisits. JMT as needed to R innominate for inflare/rot and sacral rotation for correction. POC focus: R hip pain resolution, then PF rehabilitation.
--- NOTE | 2023-06-22 14:48 | PT.OTN ---
Current Diagnoses Pain in right hip (06/22/23) Other specified disorders of muscle (06/22/23) Segmental and somatic dysfunction of sacral region (06/22/23) Physical Therapy Treatment Note PT-OP-A Visit Information Start: 04/17/23 20:10 Freq: Status: Active Protocol: Document 06/22/23 11:17 LRN (Rec: 06/22/23 12:23 LRN [id number]) Out-Patient Physical Therapy Visit Information Visit Information Visit Type Progress Note Visit Start Time 11:17 Visit Stop Time 12:00 Total Visit Minutes 43 Visit Number 10 Evaluation Information Evaluation Date 05/04/23 Precautions Precautions History of lumbar surgery due to herniated disc, lobectomy, hyste. PT-OP-B Current Condition Start: 04/17/23 20:10 Freq: Status: Active Protocol: Document 05/04/23 13:21 LRN (Rec: 05/04/23 18:05 LRN [id number]) Current Condition History of Current Condition Onset Date Past 2 yrs urainry leakage. R Hip pain december. Current Complaints R hip pain primary concern, and urinary incontinence. History of Current Condition R hip pain is primary concern. 1995 had total hyste and has felt since then she has to frequently urinate. R hip pain history: Chronic R hip pain off/on, in early December of 2022 she wasn't having any hip pain, but after hiking she was going downhill, stepping into an indent with R leg, causing her to slide, jammed the R hip into the socket. She continued to hike and was able to hike until a month ago because the hills got challenging and uncomfortable. She has more pain going uphill than downhill. Prior hx of R hip pain was that she was usually stiff on both sides. Now she can't lie on either side, but the right side is worse than the left. Her pain is located below the greater trochanter. Urinary incontinence history: Urinates frequently for a lot of yrs but in the last couple of years after she urinates, she feels the need to urinate immediately afterwards on standing. She doesn't know if she has more to urinate afterwards or whether she just feels she has to urinate. 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 She has had urinary leakage a couple of times when she couldn't make it to the bathroom. Currently she doesn't wear protection. Prior Treatments and Tests No recent x-rays. X-rays on both hips 10 yrs ago. Treatment Goals Patient/Caregiver Goals R hip goals: be able to sleep, walk, and go walk uphill without pain. PF goals: be able to have supreme contol of bladder, by not feeling like she has to urinate right after urinating. Pt agrees to education in breath control with coughing, sneezing and lifting and strengthening ex's. Personal Factors Other Personal Factors That May Effect Previous lower lumbar surgery Therapy/Recovery for herniated disc causing L sided pain. PT-OP-C Subjective Start: 04/17/23 20:10 Freq: Status: Active Protocol: Document 06/22/23 11:17 LRN (Rec: 06/22/23 12:23 LRN [id number]) OP-PT Subjective Patient Comments Patient Comments Thinks she needs 3 weeks to work on her hip and just needs time. States she is not going to be available for 2 weeks and wants to be seen for f/u of hips, then start PF therapy. Patient Questionnaires Lower Extremity Functional Scale LEFS Score 51 LEFS Impairment 20 to 39% Impaired (Score 48- 62) OP-PT Pain Assessment Pain Assessment Grid Paper Pain Assessment Grid Completed Yes Location R hip Pain Location Details R hip below greater trochanter Intensity 2 PT-OP-G Mobility & Gait Start: 04/17/23 20:11 Freq: Status: Active Protocol: Document 05/04/23 13:21 LRN (Rec: 05/04/23 18:05 LRN [id number]) Stair Climbing Evaluation Evaluation Level of Assist On Stairs Independent Devices Stair Climbing Assistive Devices Right Railing Technique/Endurance Stair Climbing Direction Ascend Stair Climbing Technique Step to Step Number of Steps Climbed 20 Comments Stair Climbing Comments Pain with going up stairs. PT-OP-H Neuro Start: 04/17/23 20:11 Freq: Status: Active Protocol: Document 05/04/23 13:21 LRN (Rec: 05/04/23 18:05 LRN [id number]) Sensation Evaluation Gross Sensation Gross Sensation WNL PT-OP-I Pelvic Floor Start: 04/17/23 20:10 Freq: Status: Active Protocol: Document 05/19/23 15:03 LRN (Rec: 05/19/23 16:28 LRN [id number]) Pelvic Floor Assessment Urine Urinary Symptoms Dribbling After Urination, Incomplete Emptying Leakage Cause Cough,Sneeze Nocturia 0 Pads Used In 24 Hours 0 Bowel Bowel Symptoms Constipation,Uncontrolled Flatulence Bowel Movement Frequency 3-6 [place] Stool Chart Comments Stool types range 4-6 Pelvic Clock Pelvic Clock Other Redness and dry in PF Pt performs PF contraction with substitue ms, primarily gluteal and abdominal muscles. . Prolapse Cystocele Grade 2 Urethrocele Grade 2 Prolapse Comments Can feel end of vagina (pt w/o uterus) with full index finger insertion (7cm). Perineal Descent Resting Absent Bearing Present Contraction Ability Voluntary Relaxation Moderate Manual Muscle Testing Left 2 Manual Muscle Testing Right 2 Manual Muscle Testing Anterior 0 Manual Muscle Testing Posterior 3 Muscle Endurance (Seconds) 3 Number of Quick Contractions In 10 10 Seconds Comments Pelvic Floor Comments Weak Superficial ms contraction, not easily identifiable. PT-OP-J Posture/Palpation/Skin Start: 04/17/23 20:10 Freq: Status: Active Protocol: Document 05/04/23 13:21 LRN (Rec: 05/04/23 18:05 LRN [id number]) Posture Evaluation Position Standing Head/C-Spine Posture Forward Head T-Spine Posture Increased Kyphosis L-Spine Posture Shifted Left Shoulder Posture (R) Elevated Scapula Posture (R) Elevated Arm Posture (L) Internally Rotated,(R) Internally Rotated Weight Distribution Balanced Knee Posture (R) Genu Valgus Ankle/Foot Posture (L) Calcaneal Eversion Comments Posture Comments Valgus knees: 7 deg's right, 2 deg's left. Decreased gastrocnemius ms mass on R, valgus L ankle > R. Pt reports she tends to stand on R LE out of habit. RUptured disc with pain on L side. Palpation Assessment Location Trunk Palpation Location Between lower ribs and Iliac Crest Palpation Details Decreased space on R between ribs/pelvis. R hip Palpation Location Inferior to R greater trochanter, R sacral border Palpation Findings Soft Tissue Tightness, Tenderness PT-OP-K Range of Motion Start: 04/17/23 20:10 Freq: Status: Active Protocol: Document 06/22/23 11:17 LRN (Rec: 06/22/23 12:23 LRN [id number]) Hip Goniometric Range of Motion Hip Right Passive Testing Position Supine Internal Rotation 25 External Rotation 65 Left Passive Testing Position Supine Internal Rotation 35 External Rotation 60 PT-OP-M Strength Start: 04/17/23 20:10 Freq: Status: Active Protocol: Document 05/04/23 13:21 LRN (Rec: 05/04/23 18:05 LRN [id number]) Hip Strength Hip Manual Muscle Testing Right Flexion (L2) 3 Fair Abduction 2+ Poor+ Adduction 2- Poor- External Rotation 5 Normal Internal Rotation 3 Fair Left Flexion (L2) 3 Fair Abduction 2 Poor Adduction 2 Poor External Rotation 3+ Fair+ Internal Rotation 3 Fair PT-OP-Q Treatments Start: 04/17/23 20:10 Freq: Status: Active Protocol: Document 06/22/23 11:17 LRN (Rec: 06/22/23 12:23 LRN [id number]) Therapeutic Exercises Supine Exercises Self correction R anterior innominate Supine Exercise Name Self resisted R hip ext/L hip flex Reps/Minutes x 3 Comments cuing for proper correction coordination, initial feet & hands placement. Bridging Supine Exercise Name Bridging hold 3 breaths Reps/Minutes 3 breath hold x 10 Comments Cuing to breathx 3, neutral spine position,equal LE WBing Fig 4 stretch Supine Exercise Name Fig 4 stretch Side bilateral Resistance R ankle over L thigh Reps/Minutes 1' each Comments Manal cuing to R hip to keep from pelvic L rotation. Lateral Hip stretch Supine Exercise Name Lat Hip stretch - shift over R front pelvis Side bilateral Resistance opp RLE extended Reps/Minutes 1' each Comments Cuing for proper positioning of stretch Piriformis stretch Supine Exercise Name Piriformis stretch Side bilateral Resistance R LE extended straight Reps/Minutes 1' hold Comments Cuing for proper positioning and location of stretch Sidelying Exercises Open Book Sidelying Exercise Name Open book stretch to the L for added QL stretch. Side left Reps/Minutes 2' Comments Cuing for head turn with hand reaching back. Manual Therapy Treatment Soft Tissue Mobilization QL Body Location R QL Mobilization Type Sustained Pressure Intensity/Depth Moderate Body Position Hooklying Self-Care/Home Management Treatment Education Patient Education Home Exercise Program Activities Self-Care/Home Management Activities Issued & reviewed HEP: SIJ Dys Phase I Self correction for R innom anter rot (R knee high in hooklye), and LTR stretch (knees to L). PT-OP-T Assessment and Plan Start: 04/17/23 20:10 Freq: Status: Active Protocol: Document 06/22/23 11:17 LRN (Rec: 06/22/23 12:23 LRN [id number]) Physical Therapy Assessment Rehab Potential Rehabilitation Potential Good Evaluation Complexity Number of Personal Factors/Comorbidities 1-2 Number of Body Systems Impaired 4 or More Clinical Presentation at Evaluation Evolving Impairments Impairments Activity Tolerance,Functional Activities,Pain,Posture,ROM, Soft Tissue Mobility,Strength, Transfers Goals Five Impairment Stress urinary incontinence Impairment Urinary leakage with cough, sneeze or bending over to forklift picker a pot. Short Term Goal (STG) Pt will be educated in breath control with coughing, sneezing and lifting and strengthening ex's. 06/17/23: discussion of use keigal ex for PF support. WIll focus more on later few weeks , focus on LE strengthening right now. STG Duration 07/22/23 updated 06/17/23 Blemish Remover Goal (LTG) Improve PF strength with pt able to cough, sneeze or bend over to forklift picker an object of moderate weight wihtout urinary leakage. LTG Duration 09/11/23 Four Impairment Lacks appropriate self care HEP for urinary incontinence care. Short Term Goal (STG) Education in proper methods for transfer with coordination of breathing, PF contractions , and education in proper vulvar/genital care. 05/19/23: Pt educated in proper methods for transfers with coordination of breathing, PF contractions. STG Duration 07/22/23 progressing 05/19/23 (need ed in vulvar/genital care) Penitentiary Goal (LTG) Pt will be educated in Pt will be independent with a self care HEP of PF/core strengthening exercises. 05/19/23: HEP: Kegels Quick and Long Hold contractions. LTG Duration 09/11/23 progressing 05/19/23 Three Impairment Urge urinary incontinence Impairment Urinates frequently, after she urinates, she feels the need to urinate immediately afterwards on standing and sometimes when trying to make it to the bathroom. Short Term Goal (STG) Pt will be educated in urinary delay technique with ability to not leak urine when walking to the bathroom. 06/17/23: discussed perform Keigal engagement until urgent feeling goes away then go to bathroon reeducating PF for strength support. STG Duration 07/17/23 updated 06/17/23 Penitentiary Goal (LTG) Pt will improve PF strength and will no longer feel like she has to urinate right after urinating. LTG Duration 09/11/23 Two Impairment R hip pain with activity and sitting. Impairment Increased R hip pain, 4/10, and discomfort with prolonged sitting and with ascending walking (uphill) and stair ambulation. Short Term Goal (STG) Decrease R hip pain with prolonged sitting. 06/08/23: Can sit for 1-2 hrs. Stairs and walking is 1-2/10 . STG Duration 06/04/23 (06/08/23: MET GOAL, pain 1-2/10 w/sitting, stairs , walking) Blemish Remover Goal (LTG) Decrease R hip pain with pt able to sleep, walk, and go uphill and ascend stairs with minimal or no pain. 06/08/23: Able to sleep much better with hip pain not keeping her awake; able to walk, ascend stairs with minimal pain rated 1-2/10. 06/22/23: Somedays can walk uphill and amb up stairs and pain doesn't bother or is minimal. Most of the time no pain in the R hip. LTG Duration 07/12/23 progressing 06/22/23 (min pain, uphill gait not assessed). One Impairment Lacks appropriate self care HEP for R hip pain management Short Term Goal (STG) Pt will be educated in proper sitting and standing posture. 06/08/23: Educated and issued handout of proper sitting & standing posture. STG Duration 06/04/23 (06/08/23: MET GOAL ) Blemish Remover Goal (LTG) Pt will be independent with a self care HEP of R>L hip ROM and hip/LE strengthening exercises. 05/11/23: HEP: Hip ER/IR stretch. 05/25/23: HEP: Abdominal core stab (TA tightening) progressive program and I/S in self care for pain with cryotherapy. 06/08/23: HEP: Wall squats issued. 06/22/23: HEP: Self correction for R anterior innominate. LTG Duration 07/12/23 progressed 06/22/23 Assessment Summary Assessment Pt is a 67 yo female who has been seen for 10 visist for R hip rehabilitation and has had some good improvement. She is now able to walk & sleep without pain, and at times is able to walk uphill and ambulate upstairs with minimal to no pain. Today she showed minimal asymmetry at her pelvis that was easy to correct with SIJ mob and self stretch to R Quadratus Lumborum. Her LEFS score improved from 55 to 51, but % of impairment (20-39%, score 48-62) was not changed. The pt will return in 2 weeks after being on a HEP for a recheck, and if she has improved or remained the same we will plan on changing focus on her rehabilitation from her R hip to her mixed urinary incontinence. I expect she will be ready to start PF rehabilitation for her secondary complaint of mixed urinary incontinence on her return in 2 weeks. The pt will benefit from skilled physical therapy for PF rehab for her mixed urinary incontinence, which will be treated for 1x/week. Physical Therapy Plan Frequency and Duration Frequency of Treatment 2x/Week Duration of treatment (weeks) 12 Plan of Care Start Date 06/22/23 Plan of Care End Date 09/11/23 Therapeutic Interventions Therapeutic Interventions Home Exercise Program,Joint Mobilizations,Manual Therapy, Neuromuscular Re-education, Self-Care/Home Management,Soft Tissue Mobilization, Therapeutic Activities, Therapeutic Exercises Modalities Biofeedback,Cold Pack/Ice Massage,Electric Stimulation, Hot Packs Next Visit Focus/Plan Next Note Type Progress Note Next Visit Plan Next tx: Add HEP: hip strengthening of alo AB/AD (to support R knee valgus), Alo hip Flex/IR, & L ER. Might Add: Standing Trunk R rot/L SB stretch to improve walking spinal alignment, ?Add R UE ex (mcdonald/DB wt carry), Recheck for HEP for R hip pain (for pt to continue while changing from R hip to PF rehab). Assess PF/Trunk ROM & strength. STM: Piriformis/Sacral region & ther ex (below) Stretches: Add R Sciatic & peroneal n. glides. (Monitor Alo hip ER/IR PROM). Ther Ex: PF/hip strengthening , Core stab. POC focus: Change focus of PT to PF rehabilitation. Monitor R hip pain for resolution & for L innominate outflare and R anterior rot innominate; correct as needed. As needed, JMT to R innominate for inflare/rot and sacral rotation for correction.
--- NOTE | 2023-07-20 17:33 | PT.OTN ---
Current Diagnoses Pain in right hip (07/20/23) Other specified disorders of muscle (07/20/23) Segmental and somatic dysfunction of sacral region (07/20/23) Physical Therapy Treatment Note PT-OP-A Visit Information Start: 04/17/23 20:10 Freq: Status: Active Protocol: Document 07/20/23 14:06 LRN (Rec: 07/20/23 14:56 LRN [id number]) Out-Patient Physical Therapy Visit Information Visit Information Visit Type Treatment Note Visit Note 1 after PN Visit Start Time 14:06 Visit Stop Time 14:46 Total Visit Minutes 40 Visit Number 11 Evaluation Information Evaluation Date 05/04/23 Precautions Precautions History of lumbar surgery due to herniated disc, lobectomy, hyste. PT-OP-B Current Condition Start: 04/17/23 20:10 Freq: Status: Active Protocol: Document 05/04/23 13:21 LRN (Rec: 05/04/23 18:05 LRN [id number]) Current Condition History of Current Condition Onset Date Past 2 yrs urainry leakage. R Hip pain december. Current Complaints R hip pain primary concern, and urinary incontinence. History of Current Condition R hip pain is primary concern. 1995 had total hyste and has felt since then she has to frequently urinate. R hip pain history: Chronic R hip pain off/on, in early December of 2022 she wasn't having any hip pain, but after hiking she was going downhill, stepping into an indent with R leg, causing her to slide, jammed the R hip into the socket. She continued to hike and was able to hike until a month ago because the hills got challenging and uncomfortable. She has more pain going uphill than downhill. Prior hx of R hip pain was that she was usually stiff on both sides. Now she can't lie on either side, but the right side is worse than the left. Her pain is located below the greater trochanter. Urinary incontinence history: Urinates frequently for a lot of yrs but in the last couple of years after she urinates, she feels the need to urinate immediately afterwards on standing. She doesn't know if she has more to urinate afterwards or whether she just feels she has to urinate. She reports urinary leakage with cough, sneeze or bending over to picker packer a pot. She has had urinary leakage a couple of times when she couldn't make it to the bathroom. Currently she doesn't wear protection. Prior Treatments and Tests No recent x-rays. X-rays on both hips 10 yrs ago. Treatment Goals Patient/Caregiver Goals R hip goals: be able to sleep, walk, and go walk uphill without pain. PF goals: be able to have supreme contol of bladder, by not feeling like she has to urinate right after urinating. Pt agrees to education in breath control with coughing, sneezing and lifting and strengthening ex's. Personal Factors Other Personal Factors That May Effect Previous lower lumbar surgery Therapy/Recovery for herniated disc causing L sided pain. PT-OP-C Subjective Start: 04/17/23 20:10 Freq: Status: Active Protocol: Document 07/20/23 14:06 LRN (Rec: 07/20/23 14:56 LRN [id number]) OP-PT Subjective Patient Comments Patient Comments On/off R hip pain. Back to walking not a lot of pain. Pt states she is leaving in 6 weeks and would like to do the PF therapy when she returns in January, but for now ready for DC to self care HEP. PT-OP-G Mobility & Gait Start: 04/17/23 20:11 Freq: Status: Active Protocol: Document 05/04/23 13:21 LRN (Rec: 05/04/23 18:05 LRN [id number]) Stair Climbing Evaluation Evaluation Level of Assist On Stairs Independent Devices Stair Climbing Assistive Devices Right Railing Technique/Endurance Stair Climbing Direction Ascend Stair Climbing Technique Step to Step Number of Steps Climbed 20 Comments Stair Climbing Comments Pain with going up stairs. PT-OP-H Neuro Start: 04/17/23 20:11 Freq: Status: Active Protocol: Document 05/04/23 13:21 LRN (Rec: 05/04/23 18:05 LRN [id number]) Sensation Evaluation Gross Sensation Gross Sensation WNL PT-OP-I Pelvic Floor Start: 04/17/23 20:10 Freq: Status: Active Protocol: Document 05/19/23 15:03 LRN (Rec: 05/19/23 16:28 LRN [id number]) Pelvic Floor Assessment Urine Urinary Symptoms Dribbling After Urination, Incomplete Emptying Leakage Cause Cough,Sneeze Nocturia 0 Pads Used In 24 Hours 0 Bowel Bowel Symptoms Constipation,Uncontrolled Flatulence Bowel Movement Frequency 3-6 [place] Stool Chart Comments Stool types range 4-6 Pelvic Clock Pelvic Clock Other Redness and dry in PF Pt performs PF contraction with substitue ms, primarily gluteal and abdominal muscles. . Prolapse Cystocele Grade 2 Urethrocele Grade 2 Prolapse Comments Can feel end of vagina (pt w/o uterus) with full index finger insertion (7cm). Perineal Descent Resting Absent Bearing Present Contraction Ability Voluntary Relaxation Moderate Manual Muscle Testing Left 2 Manual Muscle Testing Right 2 Manual Muscle Testing Anterior 0 Manual Muscle Testing Posterior 3 Muscle Endurance (Seconds) 3 Number of Quick Contractions In 10 10 Seconds Comments Pelvic Floor Comments Weak Superficial ms contraction, not easily identifiable. PT-OP-J Posture/Palpation/Skin Start: 04/17/23 20:10 Freq: Status: Active Protocol: Document 05/04/23 13:21 LRN (Rec: 05/04/23 18:05 LRN [id number]) Posture Evaluation Position Standing Head/C-Spine Posture Forward Head T-Spine Posture Increased Kyphosis L-Spine Posture Shifted Left Shoulder Posture (R) Elevated Scapula Posture (R) Elevated Arm Posture (L) Internally Rotated,(R) Internally Rotated Weight Distribution Balanced Knee Posture (R) Genu Valgus Ankle/Foot Posture (L) Calcaneal Eversion Comments Posture Comments Valgus knees: 7 deg's right, 2 deg's left. Decreased gastrocnemius ms mass on R, valgus L ankle > R. Pt reports she tends to stand on R LE out of habit. RUptured disc with pain on L side. Palpation Assessment Location Trunk Palpation Location Between lower ribs and Iliac Crest Palpation Details Decreased space on R between ribs/pelvis. R hip Palpation Location Inferior to R greater trochanter, R sacral border Palpation Findings Soft Tissue Tightness, Tenderness PT-OP-K Range of Motion Start: 04/17/23 20:10 Freq: Status: Active Protocol: Document 07/20/23 14:06 LRN (Rec: 07/20/23 14:56 LRN [id number]) Hip Goniometric Range of Motion Hip Right Passive Testing Position Supine Internal Rotation 25 External Rotation 65 Left Passive Testing Position Supine Internal Rotation 25 External Rotation 65 PT-OP-M Strength Start: 04/17/23 20:10 Freq: Status: Active Protocol: Document 05/04/23 13:21 LRN (Rec: 05/04/23 18:05 LRN [id number]) Hip Strength Hip Manual Muscle Testing Right Flexion (L2) 3 Fair Abduction 2+ Poor+ Adduction 2- Poor- External Rotation 5 Normal Internal Rotation 3 Fair Left Flexion (L2) 3 Fair Abduction 2 Poor Adduction 2 Poor External Rotation 3+ Fair+ Internal Rotation 3 Fair PT-OP-Q Treatments Start: 04/17/23 20:10 Freq: Status: Active Protocol: Document 07/20/23 14:06 LRN (Rec: 07/20/23 14:56 LRN [id number]) Therapeutic Exercises Supine Exercises Bridge & DKTC stretch Supine Exercise Name Bridge & DKTC stretch Review Reps/Minutes 1' Hamstring stretch Supine Exercise Name Hamstring stretch Side right Reps/Minutes 2' Comments 75 deg's PSLR Fig 4 stretch Supine Exercise Name Fig 4 stretch review Reps/Minutes 1' Lateral Hip stretch Supine Exercise Name Lat Hip stretch - shift over R front pelvis - Review Reps/Minutes 1' Piriformis stretch Supine Exercise Name Piriformis stretch - review Reps/Minutes 1' Prone Exercises KAYDEN Prone Exercise Name 1/4 way KAYDEN Reps/Minutes 3' Manual Therapy Treatment Soft Tissue Mobilization LB, hip/pelvis Body Location L/S paraspinals, glut max Mobilization Type Strumming Comments Assessment of tightness, tight on R side. Manual Traction Lumbar Details Lumbar traction Body Position Hooklying Reps/Duration 13' Comments R hip pain reduced from 1.5-2/ 10 to 0.5/10 Self-Care/Home Management Treatment Education Patient Education Body Mechanics,Home Exercise Program,Joint Protection,Pain Management,Posture Other Education Discussed at length pt pain symptoms and possible reasons for pain with precautions of expanding of pain as possible worsening of symptoms. Discussed at length posture in sitting/driving and modifications to sitting posture to help reduce onset of R hip pain radiating into lateral thigh. Discussed use of SI belt to help control symptoms. I/S pt to not use SI belt while doing stretch exercises. Discussed need to keep proper Body mechanics to minimize pain. Discussed use of hip/trunk stretches to manage her pain. Reviewed HEP and for use of SIJ dysfunction program for when leg lengths are not equal and ex's to continue with/ without unequal leg lengths. Activities Self-Care/Home Management Activities I/S pt in use of folded towel to support lumbar spine in supine and sidelie to minimize upper thigh pain onset. PT-OP-T Assessment and Plan Start: 04/17/23 20:10 Freq: Status: Active Protocol: Document 07/20/23 14:06 LRN (Rec: 07/20/23 14:56 LRN [id number]) Physical Therapy Assessment Goals Five Impairment Stress urinary incontinence Impairment Urinary leakage with cough, sneeze or bending over to picker packer a pot. Short Term Goal (STG) Pt will be educated in breath control with coughing, sneezing and lifting and strengthening ex's. 06/17/23: discussion of use keigal ex for PF support. WIll focus more on later few weeks , focus on LE strengthening right now. STG Duration 07/22/23 (07/20/23: PARTIALL MET GOAL, pt choosing not to complete PF PT) Longterm Goal (LTG) Improve PF strength with pt able to cough, sneeze or bend over to picker packer an object of moderate weight wihtout urinary leakage. LTG Duration 09/11/23 (07/20/23: NOT MET GOAL, pt choosing not to complete PF PT) Four Impairment Lacks appropriate self care HEP for urinary incontinence care. Short Term Goal (STG) Education in proper methods for transfer with coordination of breathing, PF contractions , and education in proper vulvar/genital care. 05/19/23: Pt educated in proper methods for transfers with coordination of breathing, PF contractions. STG Duration 07/22/23 (07/20/23: PARTIALL MET GOAL, pt choosing not to complete PF PT) Oil Changer Goal (LTG) Pt will be educated in Pt will be independent with a self care HEP of PF/core strengthening exercises. 05/19/23: HEP: Kegels Quick and Long Hold contractions. LTG Duration 09/11/23 (07/20/23: PARTIALL MET GOAL, pt choosing not to complete PF PT) Three Impairment Urge urinary incontinence Impairment Urinates frequently, after she urinates, she feels the need to urinate immediately afterwards on standing and sometimes when trying to make it to the bathroom. Short Term Goal (STG) Pt will be educated in urinary delay technique with ability to not leak urine when walking to the bathroom. 06/17/23: discussed perform Keigal engagement until urgent feeling goes away then [facility] for strength support. STG Duration 07/17/23 (07/20/23: NOT MET GOAL, , pt choosing not to complete PF PT) Oil Changer Goal (LTG) Pt will improve PF strength and will no longer feel like she has to urinate right after urinating. 07/20/23: Pt leaving in 6 weeks and would like to return in the new year to start PF PT. LTG Duration 09/11/23 (07/20/23: NOT MET GOAL, pt choosing not to complete PF PT) Two Impairment R hip pain with activity and sitting. Impairment Increased R hip pain, 4/10, and discomfort with prolonged sitting and with ascending walking (uphill) and stair ambulation. Short Term Goal (STG) Decrease R hip pain with prolonged sitting. 06/08/23: Can sit for 1-2 hrs. Stairs and walking is 1-2/10 . STG Duration 06/04/23 (06/08/23: MET GOAL, pain 1-2/10 w/sitting, stairs , walking) Longterm Goal (LTG) Decrease R hip pain with pt able to sleep, walk, and go uphill and ascend stairs with minimal or no pain. 06/08/23: Able to sleep much better with hip pain not keeping her awake; able to walk, ascend stairs with minimal pain rated 1-2/10. 06/22/23: Somedays can walk uphill and amb up stairs and pain doesn't bother or is minimal. Most of the time no pain in the R hip. LTG Duration 07/12/23 06/22/23 Improved, sometime min pain, uphill gait not assessed. One Impairment Lacks appropriate self care HEP for R hip pain management Short Term Goal (STG) Pt will be educated in proper sitting and standing posture. 06/08/23: Educated and issued handout of proper sitting & standing posture. STG Duration 06/04/23 (06/08/23: MET GOAL ) Longterm Goal (LTG) Pt will be independent with a self care HEP of R>L hip ROM and hip/LE strengthening exercises. 05/11/23: HEP: Hip ER/IR stretch. 05/25/23: HEP: Abdominal core stab (TA tightening) progressive program and I/S in self care for pain with cryotherapy. 06/08/23: HEP: Wall squats issued. 06/22/23: HEP: Self correction for R anterior innominate. 07/20/23: Reviewed HEP and self care. LTG Duration 07/12/23 (07/20/23: MET GOAL ) Assessment Summary Assessment Pt is a 67 yo female who initially presented with her primary complaint of R hip pain and secondary complaint of mixed urinary incontinence. She has had improvement in her R hip pain, but finds it is still present sometimes, but is always a little present with sleeping and walking. Her pain has been variable in presentation in the hip/thigh, sometimes left, sometimes right side or both sides. I believe her pain has to do with instability at the SI jts and that pelvic and core stabilization would be helpful in controlling and managing her pain. Use of a SI belt ( which she has) or prolotherapy may help the pt manage her pain if she is not able to manage her posture and body mechanics enough to limit pain onset. The pt would benefit from pelvic floor PT to help with her core/pelvic stabilization, but the patient would like to wait until next year when she returns from her move [place]. The pt is being discharged from physical therapy today at [facility]. Physical Therapy Plan Discharge Physical Therapy Discharge Reasons Patient Request Discharge Comments Recommend pelvic floor PT when she returns to the area next year. Thank you for your referral.
== END 2023-07-27 12:07 | disposition home or self-care (01) ==
LOC: PHYS 14:00
PROVIDERS: Family Provider Student in an Organized Health Care Education/Training Program; PCP Student in an Organized Health Care Education/Training Program; Referring Provider Student in an Organized Health Care Education/Training Program; Visit Provider Student in an Organized Health Care Education/Training Program
DX: M25.551 Pain in right hip (principal); M62.89 Other specified disorders of muscle; M99.04 Segmental and somatic dysfunction of sacral region
CPT/HCPCS: 97110; 97140; 97162; 97535

== ENCOUNTER 2024-06-03 14:53 | Day surgery (SDC) | payer MEDICARE, OTHER, SELFPAY ==
[2024-06-03] MEDS: LACTATED RINGERS 1,000 ML 42 ML IV (15:15)
[2024-06-03 15:22] VITALS: BP 147/90; PULSE 119; RESP 16; TEMP 36.2; O2SAT 100
[2024-06-03 15:55] VITALS: BP 128/88; PULSE 103; RESP 13; TEMP 36.4; O2SAT 100
--- NOTE | 2024-06-03 15:56 | P.OP.COLON_ITS ---
Operative Date/Time/Diagnoses Date of procedure: 06/03/24 Time of procedure: 15:56 Pre-op diagnosis: Altered bowel function. Family history of colon cancer Procedure & Clinicians Study performed: Diagnostic colonoscopy Same procedure as scheduled: Yes Indications: Family history of colon cancer. Altered bowel function Surgeon: Adam Metz Procedure Notes Procedure in detail: The history and physical was performed/updated and the patient is ASA class is 2. The procedure was discussed in detail with the patient. Potential risks complications including infection, bleeding, missed diagnosis, perforation, need for surgery, and were explained. Their questions were answered and informed consent was obtained. Patient was brought to the procedure room and placed standard monitoring equipment. The patient's vital signs were monitored continuously throughout the entire procedure. Prior to starting time-out was performed. The patient was placed in the left lateral recumbent position. Procedural sedation was administered by anesthesia. Examination began with a thorough inspection of the perianal area there was no evidence of fissures, fistulae, external hemorrhoids or cutaneous malignancy. The colonoscopy scope was then placed into the anal canal and was advanced to the cecum, which was identified by the ileocecal valve, the appendiceal orifice and the confluence of the taenia. The scope was then slowly withdrawn examining colon thoroughly in all directions, irrigating it of any residual stool. The scope was retroflexed within the rectum The patient tolerated the procedure well. They will be discharged once criteria are met. The prep was of good/excellent quality. The withdrawl time was 7 minutes. FINDINGS * No colonic mass or stricture * Diverticulosis of the descending colon. * Tortuosity within the sigmoid colon * Internal hemorrhoids Specimen(s): none sent Impression: Diverticulosis Post-procedure Recommendations: Colonoscopy in 5 years and High fiber diet Disposition: same day surgery
[2024-06-03 16:00] VITALS: BP 106/71; PULSE 101; RESP 12; O2SAT 98
[2024-06-03 16:05] VITALS: BP 108/80; PULSE 100; RESP 12; O2SAT 98
[2024-06-03 16:06] VITALS: BP 106/82; PULSE 101; RESP 13; O2SAT 100
== END 2024-06-03 16:25 | disposition home or self-care (01) ==
PROVIDERS: Family Provider Student in an Organized Health Care Education/Training Program; PCP Student in an Organized Health Care Education/Training Program; Referring Provider Surgery; Visit Provider Surgery
PROC: 0DJD8ZZ Inspection of Lower Intestinal Tract, Via Natural or Artificial Opening Endoscopic (ICD-10-PCS; CPT 45378; principal; 2024-06-03 16:00)
DX: R19.4 Change in bowel habit (principal); Z80.0 Family history of malignant neoplasm of digestive organs; K64.8 Other hemorrhoids; K57.30 Diverticulosis of large intestine without perforation or abscess without bleeding
CPT/HCPCS: 45378; J2704